=== PATIENT | male | born 1945 | race Caucasian/White ===

== ENCOUNTER 2016-11-28 10:44 | Inpatient (IN) | payer MEDICARE, OTHER ==
[~2016-11-28] VITALS: Ht 172.7 cm; Wt 80.1 kg
[~2016-11-28 10:44] MED LIST: ABIL5TAB6 PO; ACET1CAP18 PO; ASCO500C PO; BUSP15TA PO; CENTTAB PO; DOXA4TAB3 PO; LISI-515 PO; MORP60TA24; NYST15T TOPICAL; OMEP40CA2 PO; PROB1TAB PO; RENACAP2 PO; SERT-129 PO; SEVEL800 PO; SIMV20TA PO; VITA200013 PO; [UNRECOGNIZED DRUG - SUPPLY]
[2016-11-28 11:08] VITALS: BP 116/68; PULSE 82; RESP 14; TEMP 98.3; O2SAT 96
--- NOTE | 2016-11-28 11:09 | PD ---
HPI Chief Complaint: weakness, diarrhea Time Seen by Provider: 11:09 Travel History International Travel<30 days: No Contact w/Intl Traveler<30days: No History of Present Illness HPI 71-year-old male with PMH of HTN, HLD, GERD, CAD, s/p stenting 2, ESRD ( dialysis M, W, F) presents to the ED by EMS for evaluation of approximate one week history of loose stools, weakness, insomnia. Accompanied by intermittent nausea. The patient estimates 3 or 4 episodes of watery stools daily. Denies fever, chills, abdominal pain, anorexia, vomiting, melena, hematochezia, BRBPR. Patient states he has been anuric for "weeks." Denies chest pain, cough, shortness of breath. Endorses chronic shoulder and back pain, no worse today. Denies numbness, tingling, weakness, limitation to range of motion of the extremities. Endorses redness and warmth of the right lower extremity. Right total knee replacement revision x 2, last performed Nov [address] Smith at [facility]. Ortho appt 12/22. PCP Dr.K. Brown. Financial Advocate Dr. Nunn. Snailer Dr. Grover. [facility] Past Medical History Hx Anticoagulant Therapy: No Anemia: Yes Arthritis: Yes Anxiety: Yes Depression: Yes Cardiac Catheterization: Yes Cardiovascular Problems: Yes (CATH W/2 STENTS ) High Cholesterol: Yes Chemotherapy: No Chest Pain: Yes Cerebrovascular Accident: No Coronary Artery Disease: Yes Diabetes: No Dialysis: Yes Diminished Hearing: No Endocrine: No Gastrointestinal Disorders: Yes GERD: Yes Genitourinary: No Headaches: Yes Herniated Disk: Yes Hypertension: Yes Immune Disorder: No Musculoskeletal: Yes Neurologic: Yes Psychiatric: Yes Respiratory: No Pneumonia: Yes Past Surgical History Cardiac Surgery: Yes (STENTS ) Cholecystectomy: Yes Coronary Stent: Yes (X2) Ear Surgery: No Endocrine Surgery: No Genitourinary Surgery: No Hysterectomy: No Joint Replacement: Yes (BILATERAL KNEES) Oral Surgery: No Thoracic Surgery: No Other Surgery: Yes Social History Alcohol Use: No Tobacco Use: No (QUIT AGE 38) Substance Use: No Allergies-Medications (Allergen,Severity, Reaction): Coded Allergies: Citalopram (Verified Allergy, Intermediate, sweating, 11/07/16) Effexor (Verified Allergy, Intermediate, sweating, 11/07/16) Lamisil (Verified Allergy, Intermediate, rash, 11/07/16) Caduet (Verified Allergy, Mild, anxiety, 11/07/16) Clonidine (Verified Allergy, Mild, anxiety, 11/07/16) Cymbalta (Verified Allergy, Mild, sweating, 11/07/16) Oxycontin (Verified Allergy, Mild, anxiety, 11/07/16) Reported Meds & Prescriptions Reported Meds & Active Scripts Active Renal Vitamin (B-Complex W/ C & Folic Acid) 1 Cap 1 Cap PO DAILY If on dialysis, take after treatment. Lisinopril 20 Mg Tab 20 Mg PO BID Doxazosin (Doxazosin Mesylate) 4 Mg Tab 4 Mg PO BID Reported Simvastatin 20 Mg Tab 20 Mg PO HS Aripiprazole 15 Mg Tab 15 Mg PO BID Sertraline (Sertraline HCl) 100 Mg Tab 100 Mg PO DAILY Morphine Sulfate CR (Morphine Sulfate) 60 Mg Tab 120 Mg Q12HR Centrum Silver (Multiple Vitamins W/ Minerals) 1 Tab 1 Tab PO DAILY Tylenol (Acetaminophen) 325 Mg Cap 650 Mg PO Q4HR PRN Renvela (Sevelamer Carbonate) 800 Mg Tab 800 Mg PO TID Probiotic (Probiotic Product) 1 Tab Tab 1 Tab PO DAILY Vitamin D (Cholecalciferol) 2,000 Unit Cap 2,000 Units PO DAILY Vitamin C (Ascorbic Acid) 500 Mg Cap 500 Mg PO Buspirone (Buspirone HCl) 15 Mg Tab 15 Mg PO DAILY Review of Systems Except as stated in HPI: all other systems reviewed are Neg Physical Exam Narrative GENERAL: Well-nourished, well-developed elderly white male in no acute distress. SKIN: Warm and dry. The right leg is tender, erythematous, warm to the touch anterior aspect ankle to mid reaves. HEAD: Normocephalic. EYES: No scleral icterus. No injection or drainage. NECK: Supple, trachea midline. No JVD or lymphadenopathy. CARDIOVASCULAR: Regular rate and rhythm without murmurs, gallops, or rubs. RESPIRATORY: Breath sounds clear and equal bilaterally. No accessory muscle use. GASTROINTESTINAL: Abdomen soft, non-tender, nondistended. Active bowel sounds. MUSCULOSKELETAL: No cyanosis. 2+ pretibial edema to knees bilaterally. Bilateral TKR's with well-healed scars. BACK: Nontender. Kyphotic deformity. No CVA tenderness. Data Data Last Documented VS Vital Signs Date Time Temp Pulse Resp B/P Pulse Ox O2 Delivery O2 Flow Rate FiO2 11/28/16 11:08 98.3 82 14 116/68 96 Orders Complete Blood Count With Diff (11/28/16 11:17) Comprehensive Metabolic Panel (11/28/16 11:17) Lipase (11/28/16 11:17) Lactic Acid (11/28/16 11:17) Prothrombin Time / Inr (Pt) (11/28/16 11:17) Act Partial Throm Time (Ptt) (11/28/16 11:17) Urinalysis - C+S If Indicated (11/28/16 11:17) Iv Access Insert/Monitor (11/28/16 11:17) Ecg Monitoring (11/28/16 11:17) Oximetry (11/28/16 11:17) Sodium Chloride 0.9% Flush (Ns Flush) (11/28/16 11:30) Electrocardiogram (11/28/16 11:17) ^ Straight Catheter (11/28/16 11:17) Westergren Sedimentation Rate (11/28/16 11:44) Mri Joint Knee W/O Contrast (11/28/16 ) C-Reactive Protein (Crp) (11/28/16 11:35) Chest, Single Ap (11/28/16 ) Vancomycin Inj (Vancomycin Inj) (11/28/16 14:00) Consult Nephrology (11/28/16 ) Consult Orthopedic (11/28/16 ) (Hub Use Only)Inp Phy Cons/Ref (11/28/16 ) Admit Order (Ed Use Only) (11/28/16 14:15) (Hub Use Only)Inp Phy Cons/Ref (11/28/16 ) Labs Laboratory Tests Test 11/28/16 11:35 White Blood Count 7.0 TH/MM3 Red Blood Count 3.34 MIL/MM3 Hemoglobin 9.6 GM/DL Hematocrit 30.2 % Mean Corpuscular Volume 90.5 FL Mean Corpuscular Hemoglobin 28.8 PG Mean Corpuscular Hemoglobin 31.8 % Concent Red Cell Distribution Width 16.3 % Platelet Count 263 TH/MM3 Mean Platelet Volume 7.1 FL Neutrophils (%) (Auto) 76.8 % Lymphocytes (%) (Auto) 10.9 % Monocytes (%) (Auto) 10.0 % Eosinophils (%) (Auto) 0.6 % Basophils (%) (Auto) 1.7 % Neutrophils # (Auto) 5.4 TH/MM3 Lymphocytes # (Auto) 0.8 TH/MM3 Monocytes # (Auto) 0.7 TH/MM3 Eosinophils # (Auto) 0.0 TH/MM3 Basophils # (Auto) 0.1 TH/MM3 CBC Comment DIFF FINAL Differential Comment Erythrocyte Sedimentation Rate 69 mm/hr Prothrombin Time 20.7 SEC Prothromb Time International 1.8 RATIO Ratio Activated Partial 40.1 SEC Thromboplast Time Sodium Level 140 MEQ/L Potassium Level 4.4 MEQ/L Chloride Level 109 MEQ/L Carbon Dioxide Level 18.6 MEQ/L Anion Gap 12 MEQ/L Blood Urea Nitrogen 52 MG/DL Creatinine 8.91 MG/DL Estimat Glomerular Filtration 6 ML/MIN Rate Random Glucose 86 MG/DL Lactic Acid Level 0.4 mmol/L Calcium Level 8.0 MG/DL Total Bilirubin 0.4 MG/DL Aspartate Amino Transf 13 U/L (AST/SGOT) Alanine Aminotransferase 14 U/L (ALT/SGPT) Alkaline Phosphatase 150 U/L C-Reactive Protein 12.70 MG/DL Total Protein 6.3 GM/DL Albumin 2.4 GM/DL Lipase 58 U/L MDM Medical Decision Making Medical Screen Exam Complete: Yes Emergency Medical Condition: Yes Interpretation(s) EKG rate 63. WI interval 195 ms, QRS 90 ms, QTC 410 ms. Normal axis. No ischemic changes. Reviewed by Dr. Coulter. Differential Diagnosis Urinary tract infection versus cellulitis versus septic joint versus electrolyte abnormality versus infectious diarrhea versus other Narrative Course 71-year-old male with PMH of HTN, HLD, GERD, CAD, s/p stenting 2, ESRD ( dialysis M, W, F) presents to the ED for evaluation of approximate one week history of loose stools, weakness, insomnia. Accompanied by intermittent nausea. Estimates 3-4 episodes of watery stools daily. Denies fever, chills, abdominal pain, anorexia, vomiting, melena, hematochezia, BRBPR, chest pain, cough, shortness of breath. Endorses chronic shoulder and back pain, no worse today. Endorses redness and warmth of the right lower extremity. Total knee revision performed one year ago at [facility]. Vital signs reviewed. Physical exam reveals a nontoxic-appearing white male in no acute distress. Abdomen soft, nontender. Active bowel sounds. The right lower extremity is edematous, erythematous, warm, tender on the anterior aspect from ankle to mid reaves. Well-healed surgical scars. IV was established. Patient was placed on continuous monitoring. PCP Dr. Burrell Financial Advocate Dr. Nunn Snailer Dr. Grover CBC: WBC 7.0. Hemoglobin 9.6. CMP: BUN 52. Creatinine 8.91. Calcium 8.0 INR: 1.8 Lactic: 0.4. Lipase: 58 ESR 69 CRP 12.7 EKG: As above CXR: pending MRI of the knee: pending Suspect cellulitis, possible septic join of RLE. I spoke with the patient and his family regarding admission to the hospital for IV antibiotics and further evaluation. They are amenable to this plan of care. 1 g vancomycin ordered. Spoke with Dr. Payton who agrees to accept this patient to the medicine team. Nephrology consulted. Call placed to Dr. Ac, orthopedic surgeon, who will consult on the patient. Please see medicine, orthopedic, nephrology notes for disposition. Diagnosis Primary Impression: Cellulitis of right lower leg Kristina Schroeder Nov 28, 2016 11:09
[2016-11-28] MEDS ORDERED: SODIUM CHLORIDE 0.9% FLUSH 5 ML FLUSH IVF PRN ×2 (11:30→16:15)
[2016-11-28 11:52] LABS: AUTOMATED NEUTROPHIL # 5.4 TH/MM3 (1.8-7.7); BASOPHIL # 0.1 TH/MM3 (0-0.2); BASOPHIL % 1.7 % (0.0-2.0); EOSINOPHIL % 0.6 % (0.0-4.0); HEMATOCRIT 30.2 % (39.0-51.0); HEMO FLAGS DIFF FINAL; LYMPH % 10.9 % (9.0-44.0); LYMPHOCYTE # 0.8 TH/MM3 (1.0-4.8); MEAN CELL VOLUME 90.5 FL (80.0-100.0); MEAN CORPUSCULAR HEMOGLOBIN 28.8 PG (27.0-34.0); MEAN CORPUSCULAR HGB CONC 31.8 % (32.0-36.0); NEUT % 76.8 % (16.0-70.0); PLATELET COUNT 263 TH/MM3 (150-450); RED BLOOD COUNT 3.34 MIL/MM3 (4.50-5.90); RED CELL DISTRIBUTION WIDTH 16.3 % (11.6-17.2)
[2016-11-28 12:00] VITALS: BP 118/56; PULSE 62; RESP 20; O2SAT 97
[2016-11-28 12:11] LABS: ALT (GPT) 14 U/L (12-78); ANION GAP 12 MEQ/L (5-15); AST (GOT) 13 U/L (15-37); BICARBONATE 18.6 MEQ/L (21.0-32.0); BLOOD UREA NITROGEN 52 MG/DL (7-18); CHLORIDE 109 MEQ/L (98-107); GLOMERULAR FILTRATION RATE 6 ML/MIN (>89); POTASSIUM 4.4 MEQ/L (3.5-5.1); SODIUM (NA) 140 MEQ/L (136-145)
[2016-11-28 12:12] LABS: APTT (PATIENT) 40.1 SEC (24.3-30.1); INTERNATIONAL NORMALIZED RATIO 1.8 RATIO; PROTHROMBIN TIME - PATIENT 20.7 SEC (9.8-11.6)
[2016-11-28] MEDS ORDERED: SIMV20TA PO (12:19)
[2016-11-28] MEDS ORDERED: ARIP1TAB13 PO (12:19)
[2016-11-28 12:21] LABS: ALKALINE PHOSPHATASE 150 U/L (45-117); TOTAL BILIRUBIN ADULT 0.4 MG/DL (0.2-1.0)
[2016-11-28 13:00] VITALS: BP 112/57; PULSE 63; RESP 20; O2SAT 97
[2016-11-28] MEDS ORDERED: VANCOMYCIN INJ 1,000 MG in SODIUM CHLOR 0.9% 250 ML INJ 250 ML IV ONE ×2 (14:00→18:15)
--- NOTE | 2016-11-28 14:35 | RADRPT ---
EXAM DATE/TIME: 11/28/2016 13:39 [facility] COMPARISON: CHEST SINGLE AP, March 02, 2016, 11:02. INDICATIONS : Short of breath for 2 days MEDICAL HISTORY : Hypertension. Cardiovascular disease. SURGICAL HISTORY : Coronary artery stent. ENCOUNTER: Initial ACUITY: 2 days PAIN SCORE: 0/10 LOCATION: Bilateral chest FINDINGS: The heart is enlarged. Minimal parenchymal changes are present in the right base. The left lung is clear. There is no pneumothorax. CONCLUSION: Cardiomegaly with minimal parenchymal changes right base. Higinio Suero MD FACR on November 28, 2016 at 14:16 Board Certified Radiologist. This report was verified electronically.
[2016-11-28] MEDS ORDERED: ONDANSETRON HCL 4 MG/2 ML VIAL IVP PRN (16:00)
[2016-11-28] MEDS ORDERED: Vancomycin Consult Pharmacy 1 EA OTHER SCH (16:00)
[2016-11-28] MEDS ORDERED: MAGNESIUM HYDROXIDE SUSP 30 ML CUP PO PRN (16:00)
[2016-11-28] MEDS ORDERED: NALOXONE HCL 0.4 MG/ML AMP IV PRN (16:00)
[2016-11-28] MEDS ORDERED: SODIUM CHLOR 0.9% 1000 ML INJ 1,000 ML IV PRN ×3 (16:03)
[2016-11-28] MEDS ORDERED: NITROGLYCERIN 0.4 MG SL 25 TABS/BTL SL PRN (16:15)
[2016-11-28] MEDS ORDERED: HEPARIN SODIUM - IV 10,000 UNITS/10 ML VIAL PRN (16:15)
[2016-11-28] MEDS ORDERED: HEPARIN SODIUM - IV 10,000 UNITS/10 ML VIAL IVF PRN (16:15)
[2016-11-28] MEDS ORDERED: GELATIN 12 MM/7 MM FOAM TOP PRN (16:15)
[2016-11-28] MEDS ORDERED: GENTAMICIN SULFATE (DIALYSIS USE ONLY) 20 MG/2 ML VIAL IV PRN (16:15)
[2016-11-28] MEDS ORDERED: MANNITOL 12.5 GM/50 ML VIAL IV PRN (16:15)
[2016-11-28] MEDS ORDERED: ACETAMINOPHEN 325 MG TAB PO PRN ×2 (16:15→18:00)
[2016-11-28] MEDS ORDERED: ALBUMIN HUMAN 25% 25 GM/100 ML BAGP IV PRN (16:15)
[2016-11-28] MEDS ORDERED: ONDANSETRON HCL 4 MG/2 ML VIAL IV PRN (16:15)
[2016-11-28] MEDS ORDERED: diphenhydrAMINE HCL 25 MG CAP PO PRN (16:15)
[2016-11-28] MEDS ORDERED: cloNIDine HCL 0.1 MG TAB PO PRN (16:15)
--- NOTE | 2016-11-28 16:18 | RADRPT ---
EXAM DATE/TIME: 11/28/2016 14:07 [facility] COMPARISON: No previous studies available for comparison. INDICATIONS: Abscess. Red and swollen times 1 year. MEDICAL HISTORY: Hypertension. Renal failure, chronic. SURGICAL HISTORY: Total knee replacement, right. Discectomy, lumbar. Cholecystectomy. ENCOUNTER: Initial ACUITY: 1 year PAIN SCORE: 3/10 LOCATION: Right knee TECHNIQUE: Multiplanar, multisequence MRI examination was performed without contrast. FINDINGS: MRI of the knee was performed on this patient with total knee arthroplasty in place. Extensive metal susceptibility artifact is present. I cannot exclude a joint effusion. I do not see evidence for an abscess above or below the prosthesis. CONCLUSION: Severely limited exam because of susceptibility artifact from the metal prosthesis. I do not see an abscess above or below the prosthesis. Joint is not evaluated. Higinio Suero MD FACR on November 28, 2016 at 15:59 Board Certified Radiologist. This report was verified electronically.
[2016-11-28] MEDS: SODIUM CHLOR 0.9% 1000 ML INJ 1,000 ML IV SCH (17:00)
--- NOTE | 2016-11-28 17:46 | HHI.HP ---
[facility] Unknown Admission Diagnosis cellulitis R/O septic joint RLE Diagnoses: (1) Generalized weakness Diagnosis: Principal (2) Cellulitis of right lower leg (3) Chronic pain (4) Hypertension (5) GERD (gastroesophageal reflux disease) (6) Depression (7) ESRD (end stage renal disease) on dialysis Chief Complaint: Weakness Travel History International Travel<30 Days: No Contact w/Intl Traveler <30 Da: No Traveled to Known Affected Are: No History of Present Illness The patient is a 71-year-old male who states that for the last month he has had loose stools. He states that over the past 2-3 days he started feeling weak in his legs. He states that today his legs just couldn't hold him up anymore. He denies falling. Denies lightheadedness, dizziness, loss of consciousness. Denies chest pain or dyspnea. Has had night sweats "for months". Denies fever or chills. States that his right lower leg has been red for quite some time, but has become more red in the last few days. He has some pain with flexion and extension of the right knee. Review of Systems Constitutional: COMPLAINS OF: Night Sweats, DENIES: Fever, Chills Eyes: DENIES: Blurred vision, Vision loss Ears, nose, mouth, throat: DENIES: Hearing loss Respiratory: DENIES: Cough, Wheezing, Sputum production, Shortness of breath Cardiovascular: DENIES: Chest pain, Palpitations, Dyspnea on Exertion, Lower Extremity Edema Gastrointestinal: COMPLAINS OF: Diarrhea, DENIES: Abdominal pain, Constipation , Nausea, Vomiting Genitourinary: DENIES: Urinary frequency, Urinary incontinence, Urgency, Hematuria, Dysuria, Nocturia Musculoskeletal: DENIES: Joint pain, Muscle aches Integumentary: DENIES: Pruritus, Rash Hematologic/lymphatic: DENIES: Bruising Neurologic: DENIES: Headache Past Family Social History Past Medical History Hypertension Hyperlipidemia GERD Chronic back pain End-stage renal disease on hemodialysis Monday/Monday/Monday Anxiety/depression Coronary artery disease Osteoarthritis Past Surgical History Coronary artery stent 2 Cholecystectomy Bilateral knee replacement 2 Reported Medications Renal Vitamin (B-Complex W/ C & Folic Acid) 1 Cap 1 Cap PO DAILY If on dialysis, take after treatment. Lisinopril 20 Mg Tab 20 Mg PO BID Doxazosin (Doxazosin Mesylate) 4 Mg Tab 4 Mg PO BID Simvastatin 20 Mg Tab 20 Mg PO HS Aripiprazole 15 Mg Tab 15 Mg PO BID Sertraline (Sertraline HCl) 100 Mg Tab 100 Mg PO DAILY Morphine Sulfate CR (Morphine Sulfate) 60 Mg Tab 120 Mg Q12HR Centrum Silver (Multiple Vitamins W/ Minerals) 1 Tab 1 Tab PO DAILY Tylenol (Acetaminophen) 325 Mg Cap 650 Mg PO Q4HR PRN Renvela (Sevelamer Carbonate) 800 Mg Tab 800 Mg PO TID Probiotic (Probiotic Product) 1 Tab Tab 1 Tab PO DAILY Vitamin D (Cholecalciferol) 2,000 Unit Cap 2,000 Units PO DAILY Vitamin C (Ascorbic Acid) 500 Mg Cap 500 Mg PO Buspirone (Buspirone HCl) 15 Mg Tab 15 Mg PO DAILY Allergies: Coded Allergies: Citalopram (Verified Allergy, Intermediate, sweating, 11/07/16) Effexor (Verified Allergy, Intermediate, sweating, 11/07/16) Lamisil (Verified Allergy, Intermediate, rash, 11/07/16) Caduet (Verified Allergy, Mild, anxiety, 11/07/16) Clonidine (Verified Allergy, Mild, anxiety, 11/07/16) Cymbalta (Verified Allergy, Mild, sweating, 11/07/16) Oxycontin (Verified Allergy, Mild, anxiety, 11/07/16) Family History Sister had Crohn's disease. Social History Quit smoking 30+ years ago. Denies alcohol or illicit drug use. Physical Exam Vital Signs Vital Signs Date Time Temp Pulse Resp B/P Pulse Ox O2 Delivery O2 Flow Rate FiO2 11/28/16 13:00 63 20 112/57 97 Room Air 11/28/16 12:00 62 20 118/56 97 Room Air 11/28/16 11:08 98.3 82 14 116/68 96 Physical Exam Patient seen during dialysis. GENERAL: Elderly male in no acute distress. HEENT: Normocephalic, atraumatic. Pupils equal, round and reactive. Extraocular movements intact. No scleral icterus. No injection or drainage. Oropharynx is clear. Mucous membranes are moist. CARDIOVASCULAR: Regular rate and rhythm without murmurs, gallops, or rubs. RESPIRATORY: Clear to auscultation. No wheezes, rales, or rhonchi. Breathing is non-labored. GASTROINTESTINAL: Abdomen soft, non-tender, nondistended. EXTREMITIES: Trace bilateral lower extremity edema. There is erythema of the right lower leg. Multiple surgical scars overlying both knees. PSYCH: Alert and oriented x 3. Laboratory Laboratory Tests Test 11/28/16 11:35 White Blood Count 7.0 Red Blood Count 3.34 Hemoglobin 9.6 Hematocrit 30.2 Mean Corpuscular Volume 90.5 Mean Corpuscular Hemoglobin 28.8 Mean Corpuscular Hemoglobin 31.8 Concent Red Cell Distribution Width 16.3 Platelet Count 263 Mean Platelet Volume 7.1 Neutrophils (%) (Auto) 76.8 Lymphocytes (%) (Auto) 10.9 Monocytes (%) (Auto) 10.0 Eosinophils (%) (Auto) 0.6 Basophils (%) (Auto) 1.7 Neutrophils # (Auto) 5.4 Lymphocytes # (Auto) 0.8 Monocytes # (Auto) 0.7 Eosinophils # (Auto) 0.0 Basophils # (Auto) 0.1 CBC Comment DIFF FINAL Differential Comment Erythrocyte Sedimentation Rate 69 Prothrombin Time 20.7 Prothromb Time International 1.8 Ratio Activated Partial 40.1 Thromboplast Time Sodium Level 140 Potassium Level 4.4 Chloride Level 109 Carbon Dioxide Level 18.6 Anion Gap 12 Blood Urea Nitrogen 52 Creatinine 8.91 Estimat Glomerular Filtration 6 Rate Random Glucose 86 Lactic Acid Level 0.4 Calcium Level 8.0 Total Bilirubin 0.4 Aspartate Amino Transf 13 (AST/SGOT) Alanine Aminotransferase 14 (ALT/SGPT) Alkaline Phosphatase 150 C-Reactive Protein 12.70 Total Protein 6.3 Albumin 2.4 Lipase 58 Result Diagram: 11/28/16 1135 11/28/16 1135 Imaging Last Impressions Chest X-Ray 11/28/16 0000 Signed Impressions: Service Date/Time: Monday, November 28, 2016 13:39 - CONCLUSION: Cardiomegaly with minimal parenchymal changes right base. Higinio Suero MD FACR Assessment and Plan Assessment and Plan 1. Generalized weakness: Likely multifactorial. Consult PT. Monitor labs. 2. Right lower extremity cellulitis: Orthopedic surgery consultation requested as patient has had joint replacement and prior infection of the joint. He does have good range of motion with only mild pain at this time. 3. Coronary artery disease: Currently asymptomatic. Continue statin, MARIBETH inhibitor. 4. Chronic back pain: Continue pain control with morphine. 5. Anxiety/depression: Continue home medications. 6. End-stage renal disease: Hemodialysis per nephrology. Patient on Monday/ Monday/Monday schedule. 7. DVT prophylaxis: Heparin. Roosevelt Payton MD Nov 28, 2016 17:46
[2016-11-28] MEDS ORDERED: VANCOMYCIN INJ 1,000 MG in SODIUM CHLOR 0.9% 250 ML INJ 250 ML IV SCH (18:15)
[2016-11-28] MEDS: EPOETIN ALFA 10,000 UNITS/ML VIAL IV PRN (18:25)
--- NOTE | 2016-11-28 19:34 | MB ---
cc: EMANUEL DURAN MD DATE OF CONSULTATION 11/28/2016 REASON FOR CONSULTATION End-stage renal disease on hemodialysis for management. HISTORY OF PRESENT ILLNESS This is a 71-year-old male with past medical history of hypertension, ischemic heart disease post stenting, history of gastroesophageal reflux disease, severe osteoarthritis, came to the hospital with complaint of weakness and loose bowel motion. I was called to see the patient for management of dialysis. The patient has been following with Dr. Nunn and has been on hemodialysis Monday, Monday and Monday at [facility] in [facility]. The patient has loose bowel motion that started early in the morning and he came to the hospital. He was feeling weak and tired. He lives at home with his and he has pain and weakness in his legs because of bilateral knee replacement and only to ambulate to some extent but noticed some more swelling and pain in the right knee. He denies any history of fever. He has loose bowel motions started early in the morning. There is no history of vomiting. Denies any specific abdominal pain. There is no chest pain. No shortness of breath. PAST MEDICAL HISTORY 1. Hypertension. 2. Ischemic heart disease. 3. Gastroesophageal reflux disease. 4. End-stage renal disease on hemodialysis. 5. History of chronic anemia. PAST SURGICAL HISTORY 1. History of cardiac catheterization. 2. Left arm AV fistula. 3. Bilateral knee replacement. 4. Cholecystectomy. 5. Cardiac catheterization with stent placement. REVIEW OF SYSTEMS There is no history of fever. No sore throat. No headache, dizziness or blurring of vision. The patient has this loose bowel motion that started early in the morning mainly watery to soft and there is no blood in the stool. Has occasional abdominal cramp but there is no pain and no vomiting. No history of fever. Has some weakness in the leg and has more swelling in the right leg and right knee area. Denies any recent history of trauma. SOCIAL HISTORY Patient is and lives with his . He stopped smoking at age of 38. There is no history of heavy alcoholism. FAMILY HISTORY Noncontributory. ALLERGIES ALLERGIC TO CITALOPRAM, EFFEXOR, LAMISIL, OXYCOTIN, CADUET, CLONIDINE, CYMBALTA, OXYCONTIN. MEDICATIONS Currently he is just got one dose of vancomycin. PHYSICAL EXAMINATION GENERAL: The patient is awake and alert. He is currently on hemodialysis. VITAL SIGNS: Last blood pressure was 112/57. Temperature is 98.3. Oxygen saturation on room air is 97%. HEENT: Pupils equally reactive to light. Nonicteric sclerae. Conjunctivae pale. NECK: Supple. JVD is not elevated. LUNGS: The patient has bilateral good air entry with occasional wheezing. HEART: S1-S2. Regular rhythm. ABDOMEN: Distended. Soft. Lax. There is no tenderness. Bowel sounds positive. EXTREMITIES: He has bilateral 1+ edema more in the right leg. The right knee is a little bit more swollen. There is no redness or increased temperature. LABORATORY DATA Investigations, white blood cell count is 7.0, hemoglobin 9.6, platelet count of 263, neutrophils 76.8%. Sodium 140, potassium 4.4, chloride 109, bicarb 18.6, BUN 52, creatinine 8.9, calcium 8.0, alkaline phosphatase 150. AST is 13, ALT is 14, albumin is 2.4, total protein 6.3 and lipase 58. CRP is 12.7. Urinalysis not done. INR is 1.8. IMAGING STUDIES The patient has chest x-ray done and it shows cardiomegaly with some parenchymal changes. MRI of the knee done. Result is not available yet. ASSESSMENT/PLAN 1. Loose bowel motions possible colitis. 2. Rule out right knee septic arthritis. 3. End-stage renal disease on hemodialysis. 4. History of hypertension. 5. Anemia. The patient has been afebrile but has increase in the neutrophils, need to rule out septic arthritis. MRI was done and orthopedics has been consulted. Hemodynamically he is stable. Currently he is on dialysis, trying to remove 2 liters. He is tolerating it well. The patient had hemoglobin of 9.6. We will put him on his regular dose of Epogen and continue the dialysis Monday, Monday and Monday and as needed. I will follow the patient while he is in the hospital. Thank you for the consultation. MD MARTINEZ Almeida/STEFANIA /4:01 PM /7:17 PM
[2016-11-28 20:30] VITALS: BP 146/65; PULSE 68; RESP 19; TEMP 99; O2SAT 95
[2016-11-28 20:52] VITALS: PULSE 72
[2016-11-28] MEDS ORDERED: MORPHINE SULFATE 60 MG CONTROLLED RELEASE TAB PO SCH (21:00)
[2016-11-28] MEDS: PRAVASTATIN SOD 40 MG TAB PO SCH (21:03)
[2016-11-28] MEDS: LISINOPRIL 20 MG TAB PO SCH (21:03)
[2016-11-28] MEDS: ARIPiprazole 15 MG TAB PO SCH (22:10)
[2016-11-28] MEDS: MORPHINE SULFATE 60 MG CONTROLLED RELEASE TAB PO SCH (22:10)
[2016-11-28 23:40] VITALS: BP 146/65; PULSE 75; RESP 19; TEMP 99.9; O2SAT 87
[2016-11-29 04:54] LABS: AUTOMATED NEUTROPHIL # 3.3 TH/MM3 (1.8-7.7); BASOPHIL # 0.1 TH/MM3 (0-0.2); BASOPHIL % 1.9 % (0.0-2.0); EOSINOPHIL # 0.1 TH/MM3 (0-0.4); EOSINOPHIL % 1.3 % (0.0-4.0); HEMATOCRIT 27.4 % (39.0-51.0); HEMO FLAGS DIFF FINAL; LYMPH % 16.4 % (9.0-44.0); LYMPHOCYTE # 0.8 TH/MM3 (1.0-4.8); MEAN CELL VOLUME 88.6 FL (80.0-100.0); MEAN CORPUSCULAR HEMOGLOBIN 29.3 PG (27.0-34.0); MEAN CORPUSCULAR HGB CONC 33.1 % (32.0-36.0); MONO % 16.3 % (0.0-8.0); NEUT % 64.1 % (16.0-70.0); PLATELET COUNT 222 TH/MM3 (150-450); RED BLOOD COUNT 3.09 MIL/MM3 (4.50-5.90); RED CELL DISTRIBUTION WIDTH 16.3 % (11.6-17.2); WHITE BLOOD COUNT 5.1 TH/MM3 (4.0-11.0)
[2016-11-29] MEDS: HEPARIN SODIUM - SQ 10,000 UNITS/ML VIAL SQ SCH ×2 (05:02→17:03)
[2016-11-29 05:13] LABS: ALKALINE PHOSPHATASE 154 U/L (45-117); ALT (GPT) 13 U/L (12-78); ANION GAP 10 MEQ/L (5-15); AST (GOT) 14 U/L (15-37); BLOOD UREA NITROGEN 23 MG/DL (7-18); CHLORIDE 104 MEQ/L (98-107); GLOMERULAR FILTRATION RATE 11 ML/MIN (>89); POTASSIUM 3.5 MEQ/L (3.5-5.1); SODIUM (NA) 143 MEQ/L (136-145); TOTAL BILIRUBIN ADULT 0.4 MG/DL (0.2-1.0)
--- NOTE | 2016-11-29 07:10 | PD.CONS ---
cc: Nuno Ac MD HPI Service Orthopedic Surgeons Consult Requested By ED staff Reason for Consult Cellulitis, possible septic right total knee arthroplasty Primary Care Physician Unknown Admission Diagnosis cellulitis R/O septic joint RLE Diagnoses: (1) Generalized weakness Diagnosis: Principal (2) Cellulitis of right lower leg (3) Chronic pain (4) Hypertension (5) GERD (gastroesophageal reflux disease) (6) Depression (7) ESRD (end stage renal disease) on dialysis (8) Infection of total right knee replacement Chief Complaint: Generalized weakness, leg pain History of Present Illness This 71-year-old male with multiple medical problems has undergone previous bilateral knee surgery. The patient had a right total knee arthroplasty in [place]. This was apparently complicated by infection. He has had 2 subsequent procedures for same. The last was in May. The patient has had loose stools and generalized weakness over the last several weeks. He is having progressive difficulty ambulating. He presented to [facility]. He was admitted to the medical service with diagnosis of cellulitis and possible septic total knee. Orthopedic consultation was requested. Review of Systems Reviewed and well outlined in the chart Past Family Social History Past Medical History Hypertension Hyperlipidemia GERD Chronic back pain End-stage renal disease on hemodialysis Monday/Monday/Monday Anxiety/depression Coronary artery disease Osteoarthritis Past Surgical History Coronary artery stent 2 Cholecystectomy Bilateral knee replacement 2 Allergies: Coded Allergies: Citalopram (Verified Allergy, Intermediate, sweating, 11/07/16) Effexor (Verified Allergy, Intermediate, sweating, 11/07/16) Lamisil (Verified Allergy, Intermediate, rash, 11/07/16) Caduet (Verified Allergy, Mild, anxiety, 11/07/16) Clonidine (Verified Allergy, Mild, anxiety, 11/07/16) Cymbalta (Verified Allergy, Mild, sweating, 11/07/16) Oxycontin (Verified Allergy, Mild, anxiety, 11/07/16) Active Ordered Medications Current Medications Medications (Trade) Dose Ordered Sig/Pb Route Start Time Stop Time Status Last Admin IV Flush 2 ml 2 ml UNSCH PRN IVF 11/28/16 11:30 (NS 1000 ml Inj) 1,000 ml @ 50 mls/hr Q20H IV 11/28/16 17:00 11/28/16 17:00 (Tylenol) 650 mg Q4H PRN PO 11/28/16 16:00 (Zofran Inj) 4 mg Q6H PRN IVP 11/28/16 16:00 (Milk Of Magnesia Liq) 30 ml Q12H PRN PO 11/28/16 16:00 (Heparin Inj) 5,000 units Q12H SQ 11/28/16 17:00 11/29/16 05:02 Naloxone HCl 0.4 mg 0.4 mg UNSCH PRN IV 11/28/16 16:00 (NS 1000 ml Inj) 1,000 ml @ 0 mls/hr Q0M PRN IV 11/28/16 16:03 Heparin Sodium (Porcine) 8000 units 8,000 units UNSCH PRN IVF 11/28/16 16:15 Sodium Chloride 1,000 ml @ 200 mls/hr Q5H PRN IV 11/28/16 16:03 (NS 1000 ml Inj) 1,000 ml @ 0 mls/hr Q0M PRN IV 11/28/16 16:03 (Mannitol Inj) 12.5 gm UNSCH PRN IV 11/28/16 16:15 (Albumin 25% Inj) 25 gm UNSCH PRN IV 11/28/16 16:15 (NS Flush) 5 ml UNSCH PRN IVF 11/28/16 16:15 (Heparin Inj) UNSCH PRN .XX 11/28/16 16:15 (Gentamicin (Dialysis) Inj) 20 mg UNSCH PRN IV 11/28/16 16:15 (Zofran Inj) 4 mg UNSCH PRN IV 11/28/16 16:15 (Tylenol) 650 mg UNSCH PRN PO 11/28/16 16:15 (Benadryl) 25 mg UNSCH PRN PO 11/28/16 16:15 (Nitrostat Sl) 0.4 mg UNSCH PRN SL 11/28/16 16:15 (Epogen Inj) 10,000 units UNSCH PRN IV 11/28/16 16:15 11/28/16 18:25 (Gelfoam 12 Mm/7 Mm Top) 1 foam UNSCH PRN TOP 11/28/16 16:15 2/6/17 18:26 (Tylenol) 650 mg Q4HR PRN PO 11/28/16 18:00 (Abilify) 15 mg BID PO 11/28/16 21:00 11/28/16 22:10 (Nephrocaps) 1 cap DAILY PO 11/29/16 09:00 (Buspar) 15 mg DAILY PO 11/29/16 09:00 (Prinivil) 20 mg BID PO 11/28/16 21:00 11/28/16 21:03 (Zoloft) 100 mg DAILY PO 11/29/16 09:00 (Renvela) 800 mg TID PO 11/28/16 18:00 (Lactinex) 1 tab DAILY PO 11/29/16 09:00 (Pravachol) 40 mg HS PO 11/28/16 21:00 11/28/16 21:03 (Oramorph Sr) 60 mg Q12HR PO 11/28/16 21:00 11/28/16 22:10 Reported Meds & Active Scripts Active Renal Vitamin (B-Complex W/ C & Folic Acid) 1 Cap 1 Cap PO DAILY If on dialysis, take after treatment. Lisinopril 20 Mg Tab 20 Mg PO BID Doxazosin (Doxazosin Mesylate) 4 Mg Tab 4 Mg PO BID Reported Simvastatin 20 Mg Tab 20 Mg PO HS Aripiprazole 15 Mg Tab 15 Mg PO BID Sertraline (Sertraline HCl) 100 Mg Tab 100 Mg PO DAILY Morphine Sulfate CR (Morphine Sulfate) 60 Mg Tab 120 Mg Q12HR Centrum Silver (Multiple Vitamins W/ Minerals) 1 Tab 1 Tab PO DAILY Tylenol (Acetaminophen) 325 Mg Cap 650 Mg PO Q4HR PRN Renvela (Sevelamer Carbonate) 800 Mg Tab 800 Mg PO TID Probiotic (Probiotic Product) 1 Tab Tab 1 Tab PO DAILY Vitamin D (Cholecalciferol) 2,000 Unit Cap 2,000 Units PO DAILY Vitamin C (Ascorbic Acid) 500 Mg Cap 500 Mg PO Buspirone (Buspirone HCl) 15 Mg Tab 15 Mg PO DAILY Family History Sister had Crohn's disease. Social History Quit smoking 30+ years ago. Denies alcohol or illicit drug use. Physical Exam Vital Signs Vital Signs Date Time Temp Pulse Resp B/P Pulse Ox O2 Delivery O2 Flow Rate FiO2 11/28/16 23:40 99.9 75 19 146/65 87 11/28/16 20:52 72 11/28/16 20:30 99.0 68 19 146/65 95 11/28/16 13:00 63 20 112/57 97 Room Air 11/28/16 12:00 62 20 118/56 97 Room Air 11/28/16 11:08 98.3 82 14 116/68 96 Physical Exam He has bilateral anterior knee incisions. There is scarring in the suprapatellar region on the left. The left knee has no soft tissue swelling or effusion. His range of motion is from 5-120 of flexion. There is no palpable tenderness. The right knee has mild soft tissue swelling. There is no significant effusion. There is no increased warmth or erythema. He has a restricted active range of motion from approximately 10-110 of flexion. There is no specific palpable tenderness. There is no obvious instability. He has no distal lower extremity swelling. He has no palpable tenderness in the calf. He has a negative Homans sign. Neurologically no focal deficit. Laboratory Laboratory Tests Test 11/28/16 11/29/16 11:35 04:03 White Blood Count 7.0 5.1 Red Blood Count 3.34 3.09 Hemoglobin 9.6 9.1 Hematocrit 30.2 27.4 Mean Corpuscular Volume 90.5 88.6 Mean Corpuscular Hemoglobin 28.8 29.3 Mean Corpuscular Hemoglobin 31.8 33.1 Concent Red Cell Distribution Width 16.3 16.3 Platelet Count 263 222 Mean Platelet Volume 7.1 7.1 Neutrophils (%) (Auto) 76.8 64.1 Lymphocytes (%) (Auto) 10.9 16.4 Monocytes (%) (Auto) 10.0 16.3 Eosinophils (%) (Auto) 0.6 1.3 Basophils (%) (Auto) 1.7 1.9 Neutrophils # (Auto) 5.4 3.3 Lymphocytes # (Auto) 0.8 0.8 Monocytes # (Auto) 0.7 0.8 Eosinophils # (Auto) 0.0 0.1 Basophils # (Auto) 0.1 0.1 CBC Comment DIFF FINAL DIFF FINAL Differential Comment Erythrocyte Sedimentation Rate 69 Prothrombin Time 20.7 Prothromb Time International 1.8 Ratio Activated Partial 40.1 Thromboplast Time Sodium Level 140 143 Potassium Level 4.4 3.5 Chloride Level 109 104 Carbon Dioxide Level 18.6 29.0 Anion Gap 12 10 Blood Urea Nitrogen 52 23 Creatinine 8.91 5.17 Estimat Glomerular Filtration 6 11 Rate Random Glucose 86 68 Lactic Acid Level 0.4 Calcium Level 8.0 7.6 Total Bilirubin 0.4 0.4 Aspartate Amino Transf 13 14 (AST/SGOT) Alanine Aminotransferase 14 13 (ALT/SGPT) Alkaline Phosphatase 150 154 C-Reactive Protein 12.70 Total Protein 6.3 5.5 Albumin 2.4 2.0 Lipase 58 Result Diagram: 11/29/16 0403 11/29/163 Imaging Last 48 hours Impressions Knee MRI 11/28/16 0000 Signed Impressions: Service Date/Time: Monday, November 28, 2016 14:07 - CONCLUSION: Severely limited exam because of susceptibility artifact from the metal prosthesis. I do not see an abscess above or below the prosthesis. Joint is not evaluated. Higinio Suero MD FACR Chest X-Ray 11/28/16 0000 Signed Impressions: Service Date/Time: Monday, November 28, 2016 13:39 - CONCLUSION: Cardiomegaly with minimal parenchymal changes right base. Higinio Suero MD FACR Assessment & Plan Problem List: (1) Encephalopathy (2) UTI (urinary tract infection) (3) Physical deconditioning (4) Peripheral autonomic neuropathy due to underlying disease (5) Generalized weakness (6) Depression (7) GERD (gastroesophageal reflux disease) (8) Hypertension (9) Chronic pain (10) Cellulitis of right lower leg (11) Infection of total right knee replacement Assessment and Plan The findings were discussed. Clinically the patient does not appear septic nor does the joint appeared to be acutely infected. The possibility however exists based on his previous history. The patient states he is willing and agreeable to return to his treating orthopedist for further workup and management. Once he is medically stabilized he can be discharged from an orthopedic standpoint. Will have case management assist with arranging follow-up care. Reconsult as needed. Nuno cA MD Nov 29, 2016 07:10
[2016-11-29 07:36] VITALS: O2SAT 94
[2016-11-29 08:00] VITALS: BP 136/63; PULSE 80; RESP 19; TEMP 98.2; O2SAT 95
[2016-11-29] MEDS: LACTOBACILLUS ACIDOPHILUS TAB PO SCH (09:14)
[2016-11-29] MEDS: VITAMIN B CMPLX/VITC/FOLIC AC CAP PO SCH (09:14)
[2016-11-29] MEDS: busPIRone HCL 5 MG TAB PO SCH (09:15)
[2016-11-29] MEDS: SERTRALINE HCL 100 MG TAB PO SCH (09:15)
[2016-11-29] MEDS: LISINOPRIL 20 MG TAB PO SCH ×2 (09:15→21:39)
[2016-11-29] MEDS: ARIPiprazole 15 MG TAB PO SCH ×2 (09:16→21:39)
[2016-11-29] MEDS: MORPHINE SULFATE 60 MG CONTROLLED RELEASE TAB PO SCH ×2 (09:16→21:40)
[2016-11-29] MEDS: SEVELAMER CARBONATE 800 MG TAB PO SCH ×3 (09:17→17:06)
--- NOTE | 2016-11-29 11:47 | HHI.PR ---
Subjective Remarks Follow up leg infection, generalized weakness. The patient states that he is feeling better today. Right leg is less painful. There is less erythema of the right lower leg. Denies chest pain, dyspnea, nausea, vomiting. No diarrhea or constipation. Objective Vitals Vital Signs Date Time Temp Pulse Resp B/P Pulse Ox O2 Delivery O2 Flow Rate FiO2 11/29/16 10:16 17 11/29/16 08:00 98.2 80 19 136/63 95 11/29/16 07:36 94 21 11/28/16 23:40 99.9 75 19 146/65 87 11/28/16 20:52 72 11/28/16 20:30 99.0 68 19 146/65 95 11/28/16 13:00 63 20 112/57 97 Room Air 11/28/16 12:00 62 20 118/56 97 Room Air I/O 11/28/16 11/28/16 11/28/16 11/29/16 11/29/16 11/29/16 07:00 15:00 23:00 07:00 15:00 23:00 Intake Total 50 ml 385 ml 120 ml Output Total 3000 ml Balance -2950 ml 385 ml 120 ml Intake Oral 0 ml 0 ml 120 ml IV Total 50 ml 385 ml Output Urine Total 0 ml Hemodialysis 3000 ml # Voids 0 # Bowel Movements 0 0 Result Diagram: 11/29/16 0403 11/29/16 0403 Imaging Last Impressions Knee MRI 11/28/16 0000 Signed Impressions: Service Date/Time: Monday, November 28, 2016 14:07 - CONCLUSION: Severely limited exam because of susceptibility artifact from the metal prosthesis. I do not see an abscess above or below the prosthesis. Joint is not evaluated. Higinio Suero MD FACR Chest X-Ray 11/28/16 0000 Signed Impressions: Service Date/Time: Monday, November 28, 2016 13:39 - CONCLUSION: Cardiomegaly with minimal parenchymal changes right base. Higinio Suero MD FACR Objective Remarks General: Elderly male in no acute distress. Sitting up in a chair. Heart: Regular rate and rhythm. No murmur. Lungs: Clear to auscultation bilaterally. No wheezes, rales, or rhonchi. Breathing is nonlabored. Abdomen: Soft, nontender, nondistended. Extremities: 1+ bilateral lower extremity edema. Multiple surgical scars on both knees. Decreased erythema of the right lower leg. Psych: Alert and oriented. Procedures None Urinary Catheter: No Vascular Central Line Catheter: No A/P Problem List: (1) Generalized weakness ICD Code: R53.1 Status: Acute (2) Cellulitis of right lower leg ICD Code: L03.115 Status: Acute (3) Chronic pain ICD Code: G89.29 Status: Acute (4) Hypertension ICD Code: I10 Status: Chronic (5) GERD (gastroesophageal reflux disease) ICD Code: K21.9 Status: Chronic (6) Depression ICD Code: F32.9 Status: Chronic (7) ESRD (end stage renal disease) on dialysis ICD Code: N18.6 Status: Chronic (8) Infection of total right knee replacement ICD Code: T84.53XA Status: Acute Assessment and Plan 1. Generalized weakness: Likely multifactorial. Consult PT. Monitor labs. 2. Right lower extremity cellulitis: Improving. Appreciate orthopedic surgery recommendations. Continue antibiotics. Follow-up as outpatient with orthopedic surgery in [place]. 3. Coronary artery disease: Currently asymptomatic. Continue statin, MARIBETH inhibitor. 4. Chronic back pain: Continue pain control with morphine. 5. Anxiety/depression: Continue home medications. 6. End-stage renal disease: Hemodialysis per nephrology. Patient on Monday/ Monday/Monday schedule. 7. DVT prophylaxis: Heparin. Roosevelt Payton MD Nov 29, 2016 11:47
[2016-11-29] MEDS: SODIUM CHLOR 0.9% 1000 ML INJ 1,000 ML IV SCH ×2 (11:48→21:40)
[2016-11-29 12:00] VITALS: BP 97/55; PULSE 95; RESP 20; TEMP 99.3; O2SAT 95
[2016-11-29 16:00] VITALS: BP 115/70; PULSE 60; RESP 19; TEMP 98.6; O2SAT 92
--- NOTE | 2016-11-29 16:09 | HHI.NPPN ---
Subjective General Problems: Anemia, Edema, Hypertension Renal Failure: End Stage Renal Disease History of Present Illness 71-year-old male with past medical history of hypertension, ischemic heart disease post stenting, history of gastroesophageal reflux disease, severe osteoarthritis, came to the hospital with complaint of weakness and loose bowel motion. I was called to see the patient for management of dialysis. The patient has been following with Dr. Nunn and has been on hemodialysis Monday, Monday and Monday at [facility] in [facility]. Additional Remarks Patient is alert, sitting on chair, now started eating better and BM is improving. Review of Systems General Constitutional: Fever, Fatigue Cardiovascular Cardiac: [place] Gastrointestinal Gastrointestinal: Abdominal Pain, Diarrhea Objective Data Data 11/28/16 11/29/16 19:00 07:00 Intake Total 435 ml Output Total 3000 ml 0 ml Balance -3000 ml 435 ml Intake Oral 0 ml IV Total 435 ml Output Urine Total 0 ml Hemodialysis 3000 ml # Voids 0 # Bowel Movements 0 Vital Signs Date Time Temp Pulse Resp B/P Pulse Ox O2 Delivery O2 Flow Rate FiO2 11/29/16 12:00 99.3 95 20 97/55 95 11/29/16 10:16 17 11/29/16 08:00 98.2 80 19 136/63 95 11/29/16 07:36 94 21 11/28/16 23:40 99.9 75 19 146/65 87 11/28/16 20:52 72 11/28/16 20:30 99.0 68 19 146/65 95 -: 11/29/16 0403 11/29/16 0403 Physical Exam General Appearance: No Acute Distress, Comfortable Eyes Eye Exam: Pupils Equal Throat Throat Exam: Oral Mucosa [place] & Moist Neck Neck Exam: Neck Supple Pulmonary Resp Exam: Breath Sounds Equal, No Distress, Rhonchi, Decreased Bases Cardiology CV Exam: Regular, Normal Sinus Rhythm Gastrointestinal/Abdomen GI Exam: Soft, Non-Tender, Bowel Sounds Present Extremeties Extremities Exam: Trace Edema Neurologic Neuro Exam: Alert, Awake, Oriented Psychiatric Psych Exam: Appropriate Responses Assessment/Plan Assessment Summary: Anemia of CKD, End Stage Renal Disease Problem List: (1) Chronic pain (2) Hypertension (3) GERD (gastroesophageal reflux disease) (4) Generalized weakness (5) Infection of total right knee replacement (6) ESRD (end stage renal disease) on dialysis Plan Patient has HD done yesterday. Seen by Orthopaedics, unlikely to have infected knee. On Vanco. with HD. HD will be in AM. Has low grade fever. Now better. Diarrhea improving. HD will be in AM. To follow with his Orthopaedics in [place]. D/W the family at bed side. Problem Qualifiers (1) Hypertension: Qualified Code: I10 - Essential hypertension Yolanda Hester MD Nov 29, 2016 16:09
--- NOTE | 2016-11-29 18:02 | EKG ---
Date Performed: 11/28/2016 Time Performed: 11:55:14 PTAGE: 71 years EKG: Sinus rhythm Since previous tracing, no significant change noted NORMAL ECG PREVIOUS TRACING : 03/02/2016 10.33 DOCTOR: Sandip Marinelli Interpretating Date/Time 11/29/2016 18:01:38
[2016-11-29 20:00] VITALS: BP 152/70; PULSE 65; PULSE 68; RESP 20; TEMP 99.5; O2SAT 99
[2016-11-29] MEDS: PRAVASTATIN SOD 40 MG TAB PO SCH (21:39)
[2016-11-30] VITALS (15 sets, daily range): BP systolic 87–143; BP diastolic 26–69; PULSE 67–129; RESP 18–20; TEMP 97.2–102; O2SAT 96–100
[2016-11-30] MEDS: HEPARIN SODIUM - SQ 10,000 UNITS/ML VIAL SQ SCH ×2 (04:15→17:00)
[2016-11-30] MEDS: ACETAMINOPHEN 325 MG TAB PO PRN ×2 (04:15→20:04)
[2016-11-30 07:23] LABS: AUTOMATED NEUTROPHIL # 6.9 TH/MM3 (1.8-7.7); BASOPHIL % 0.6 % (0.0-2.0); EOSINOPHIL % 0.1 % (0.0-4.0); HEMATOCRIT 29.5 % (39.0-51.0); HEMO FLAGS DIFF FINAL; LYMPH % 2.1 % (9.0-44.0); LYMPHOCYTE # 0.2 TH/MM3 (1.0-4.8); MEAN CELL VOLUME 89.2 FL (80.0-100.0); MEAN CORPUSCULAR HEMOGLOBIN 29.1 PG (27.0-34.0); MEAN CORPUSCULAR HGB CONC 32.7 % (32.0-36.0); MONO % 2.4 % (0.0-8.0); NEUT % 94.8 % (16.0-70.0); PLATELET COUNT 205 TH/MM3 (150-450); RED BLOOD COUNT 3.31 MIL/MM3 (4.50-5.90); WHITE BLOOD COUNT 7.2 TH/MM3 (4.0-11.0)
[2016-11-30 07:27] LABS: BICARBONATE 22.3 MEQ/L (21.0-32.0); POTASSIUM 3.5 MEQ/L (3.5-5.1)
[2016-11-30 07:46] LABS: CALCIUM-PROTEIN CORRECTED 8.1 MG/DL (8.5-10.1)
--- NOTE | 2016-11-30 10:28 | HHI.NPPN ---
Subjective General Problems: Anemia, Edema, Hypertension Renal Failure: End Stage Renal Disease History of Present Illness 71-year-old male with past medical history of hypertension, ischemic heart disease post stenting, history of gastroesophageal reflux disease, severe osteoarthritis, came to the hospital with complaint of weakness and loose bowel motion. I was called to see the patient for management of dialysis. The patient has been following with Dr. Nunn and has been on hemodialysis Monday, Monday and Monday at [facility] in [facility]. Additional Remarks Patient is alert,seen during HD, alert, not in distress. Review of Systems General Constitutional: Fever, Fatigue Cardiovascular Cardiac: [place] Gastrointestinal Gastrointestinal: Abdominal Pain, Diarrhea Objective Data Data 11/29/16 11/30/16 19:00 07:00 Intake Total 1090 ml 840 ml Output Total 0 ml Balance 1090 ml 840 ml Intake Oral 880 ml 240 ml IV Total 210 ml 600 ml Output Urine Total 0 ml # Voids 1 # Bowel Movements 0 0 Vital Signs Date Time Temp Pulse Resp B/P Pulse Ox O2 Delivery O2 Flow Rate FiO2 11/30/16 08:00 98.8 85 19 139/69 96 11/30/16 05:53 98.4 11/30/16 05:20 99.8 11/30/16 05:15 20 11/30/16 04:00 100.1 88 19 143/65 96 11/30/16 00:00 97.2 67 19 141/64 97 11/29/16 22:40 20 11/29/16 20:00 65 11/29/16 20:00 65 11/29/16 20:00 99.5 68 20 152/70 99 11/29/16 18:16 21 11/29/16 16:00 98.6 60 19 115/70 92 11/29/16 12:00 99.3 95 20 97/55 95 -: 11/30/16 0628 11/30/16 0628 Physical Exam General Appearance: No Acute Distress, Comfortable Eyes Eye Exam: Pupils Equal Throat Throat Exam: Oral Mucosa [place] & Moist Neck Neck Exam: Neck Supple Pulmonary Resp Exam: Breath Sounds Equal, No Distress, Rhonchi, Decreased Bases Cardiology CV Exam: Regular, Normal Sinus Rhythm Gastrointestinal/Abdomen GI Exam: Soft, Non-Tender, Bowel Sounds Present Extremeties Extremities Exam: Trace Edema Neurologic Neuro Exam: Alert, Awake, Oriented Psychiatric Psych Exam: Appropriate Responses Assessment/Plan Assessment Summary: Anemia of CKD, End Stage Renal Disease Problem List: (1) Chronic pain (2) Hypertension (3) GERD (gastroesophageal reflux disease) (4) Generalized weakness (5) Infection of total right knee replacement (6) ESRD (end stage renal disease) on dialysis Plan Seen by Orthopaedics, unlikely to have infected knee. On Vanco. with HD. Has low grade fever. Diarrhea improving. To follow with his Orthopaedics in [place]. HD now, continue Vanco., follow cultures. Problem Qualifiers (1) Hypertension: Qualified Code: I10 - Essential hypertension Yolanda Hester MD Nov 30, 2016 10:28
[2016-11-30] MEDS: EPOETIN ALFA 10,000 UNITS/ML VIAL IV PRN (12:33)
[2016-11-30] MEDS: SEVELAMER CARBONATE 800 MG TAB PO SCH ×3 (13:00→17:55)
[2016-11-30] MEDS: LACTOBACILLUS ACIDOPHILUS TAB PO SCH (13:47)
[2016-11-30] MEDS: MORPHINE SULFATE 60 MG CONTROLLED RELEASE TAB PO SCH ×2 (13:48→21:00)
[2016-11-30] MEDS: busPIRone HCL 5 MG TAB PO SCH (13:48)
[2016-11-30] MEDS: ARIPiprazole 15 MG TAB PO SCH ×2 (13:48→21:00)
[2016-11-30] MEDS: SERTRALINE HCL 100 MG TAB PO SCH (13:48)
[2016-11-30] MEDS: LISINOPRIL 20 MG TAB PO SCH ×2 (13:49→21:00)
[2016-11-30] MEDS: VITAMIN B CMPLX/VITC/FOLIC AC CAP PO SCH (13:49)
--- NOTE | 2016-11-30 15:07 | HHI.PR ---
Subjective Remarks Follow-up right leg cellulitis. The patient had dialysis today. He states that he feels tired. He thinks his leg is improving. He is reporting abdominal discomfort and loose stools. Objective Vitals Vital Signs Date Time Temp Pulse Resp B/P Pulse Ox O2 Delivery O2 Flow Rate FiO2 11/30/16 08:00 98.8 85 19 139/69 96 11/30/16 05:53 98.4 11/30/16 05:20 99.8 11/30/16 05:15 20 11/30/16 04:00 100.1 88 19 143/65 96 11/30/16 00:00 97.2 67 19 141/64 97 11/29/16 22:40 20 11/29/16 20:00 65 11/29/16 20:00 65 11/29/16 20:00 99.5 68 20 152/70 99 11/29/16 18:16 21 11/29/16 16:00 98.6 60 19 115/70 92 I/O 11/29/16 11/29/16 11/29/16 11/30/16 11/30/16 11/30/16 07:00 15:00 23:00 07:00 15:00 23:00 Intake Total 385 ml 1090 ml 120 ml 720 ml Output Total 0 ml 2000 ml Balance 385 ml 1090 ml 120 ml 720 ml -2000 ml Intake Oral 0 ml 880 ml 120 ml 120 ml IV Total 385 ml 210 ml 600 ml Output Urine Total 0 ml Hemodialysis 2000 ml # Voids 0 1 0 # Bowel Movements 0 0 0 0 Result Diagram: 11/30/16 0628 11/30/16 0628 Imaging Last Impressions Knee MRI 11/28/16 0000 Signed Impressions: Service Date/Time: Monday, November 28, 2016 14:07 - CONCLUSION: Severely limited exam because of susceptibility artifact from the metal prosthesis. I do not see an abscess above or below the prosthesis. Joint is not evaluated. Higinio Suero MD FACR Chest X-Ray 11/28/16 0000 Signed Impressions: Service Date/Time: Monday, November 28, 2016 13:39 - CONCLUSION: Cardiomegaly with minimal parenchymal changes right base. Higinio Suero MD FACR Objective Remarks General: Elderly male in no acute distress. Sitting up in a chair. Heart: Regular rate and rhythm. No murmur. Lungs: Clear to auscultation bilaterally. No wheezes, rales, or rhonchi. Breathing is nonlabored. Abdomen: Soft, nontender, nondistended. Extremities: 1+ bilateral lower extremity edema. Multiple surgical scars on both knees. Decreased erythema of the right lower leg. Psych: Alert and oriented. Procedures None Urinary Catheter: No Vascular Central Line Catheter: No A/P Problem List: (1) Generalized weakness ICD Code: R53.1 Status: Acute (2) Cellulitis of right lower leg ICD Code: L03.115 Status: Acute (3) Chronic pain ICD Code: G89.29 Status: Chronic (4) Hypertension ICD Code: I10 Status: Chronic (5) GERD (gastroesophageal reflux disease) ICD Code: K21.9 Status: Chronic (6) Depression ICD Code: F32.9 Status: Chronic (7) ESRD (end stage renal disease) on dialysis ICD Code: N18.6 Status: Chronic Assessment and Plan 1. Generalized weakness: Likely multifactorial. Continue physical therapy Monitor labs. 2. Right lower extremity cellulitis: Improving. Appreciate orthopedic surgery recommendations. Continue antibiotics. Follow-up as outpatient with orthopedic surgery in [place]. Consult infectious disease. 3. Coronary artery disease: Currently asymptomatic. Continue statin, MARIBETH inhibitor. 4. Chronic back pain: Continue pain control with morphine. 5. Anxiety/depression: Continue home medications. 6. End-stage renal disease: Hemodialysis per nephrology. Patient on Monday/ Monday/Monday schedule. 7. DVT prophylaxis: Heparin. 8. Abdominal pain, diarrhea: Check C. difficile. Problem Qualifiers (1) Hypertension: Qualified Code: I10 - Essential hypertension Roosevelt Payton MD Nov 30, 2016 15:07
[2016-11-30] MEDS ORDERED: ROCURONIUM INJ 50 MG/5 ML VIAL ONE (18:09)
[2016-11-30] MEDS ORDERED: ETOMIDATE 20 MG/10 ML VIAL ONE (18:09)
[2016-11-30] MEDS ORDERED: NOREPINEPHRINE 4 MG/D5W 250 ML IV SCH (18:15)
[2016-11-30] MEDS ORDERED: PROPOFOL 1000 MG/100 ML INJ 100 ML ONE (18:26)
[2016-11-30] MEDS ORDERED: CHLORHEXIDINE GLUCONATE 2 % 1 PACK (2 CLOTHS)(extra cloths) TOP PRN (18:30)
[2016-11-30] MEDS ORDERED: TERBUTALINE INJ 1 MG/ML AMP SQ PRN ×2 (18:30→19:00)
[2016-11-30] MEDS ORDERED: PROPOFOL 1000 MG/100 ML INJ 100 ML IV SCH (18:45)
--- NOTE | 2016-11-30 18:47 | PD.PROCEDR ---
Central Line Procedure REASON FOR PROCEDURE Central venous access PROCEDURE PERFORMED Central line placement: Left IJ CVL CONSENT Informed consent for procedure was obtained. The risks and benefits of the procedure were discussed to include but limited to bleeding, clot formation, infection, and even . ANESTHESIA Local injection of 1% Lidocaine DESCRIPTION OF THE PROCEDURE The patient was placed in supine, mild Trendelenburg position. The area was exposed and cleansed with ChloraPrep, times two. Large sterile drape was used to cover the patient, with the site exposed, under sterile conditions including cap, face mask, sterile gown, and sterile gloves. On single attempt, the introducer needle was inserted with negative pressure in syringe and venous flash was obtained. The guide wire was then advanced without any restriction and the needle was removed. The dilator was used without any complications. Using Seldinger technique the triple-lumen catheter was advanced over the guide wire to a depth of 20 centimeters. The guide wire was removed. All ports were aspirated with dark venous blood return and flushed easily with sterile saline. All ports were capped. Antibiotic disc was placed around central line at puncture site. The central line was secured to the skin with two interrupted 2.0 silk sutures. The area was bandaged with sterile see-through central line bandage. RADIOLOGICAL DATA Ultrasound guidance was used to locate the left internal jugular vein. Doppler/ color flow was used to confirm venous flow. COMPLICATIONS: No apparent complications ESTIMATED BLOOD LOSS: Less than 1 cc. Colton Holliday MD Nov 30, 2016 18:47
--- NOTE | 2016-11-30 18:48 | PD.PROCEDR ---
Procedure Note Procedure DATE: 11/30/16 PROCEDURE: Orotracheal intubation INDICATION: Respiratory failure DETAILS OF PROCEDURE The patient was placed in optimal position and preoxygenated with 100% FiO2 via bag valve mask. At the start oxygen saturation was 100%. The patient was administered 20 mg etomidate IV. I entered the oropharynx with a size 4 glide scope blade and obtained a grade 2 view of the airway. On single attempt a size 8.0 cuffed endotracheal tube was passed through the vocal cords. Correct tube location was confirmed with end tidal CO2 detector and by auscultating over bilateral lung wallace. The endotracheal tube was secured with adhesive tape at a depth of 24 cm at the lips. The patient was connected to the ventilator. The patient tolerated the procedure well without any apparent complications. Oxygen saturations were maintained greater than 95% all times. STAT chest x-ray []. Colton Holliday MD Nov 30, 2016 18:48
--- NOTE | 2016-11-30 18:50 | PD.CONS ---
[facility] Service Critical Care Medicine Consult Requested By Dr. Payton Reason for Consult Altered mental status Primary Care Physician Unknown History of Present Illness 1-year-old male. Date of admission 11/28/2016. Date of consultation 11/30/2016. Past medical history includes end-stage renal disease on hemodialysis Monday was a Monday, hypertension, dyslipidemia, coronary disease status post stent, osteoarthritis with bilateral total knee replacement, chronic low back pain and gastroscope reflux disease. He also has a history of C. difficile and MRSA. He presents to [facility] with a few day history of lower extremity weakness. Specifically weakness in his right knee. He was started vancomycin with hemodialysis Patient was admitted on the hospitalist service. MRI of the knee revealed no acute findings. Was seen by Dr. Ac/orthopedics do not believe this is a septic joint. Follow-up with regular orthopedic physician. After hemodialysis today, patient received Zofran, or mouth lisinopril. Patient was hypotensive and altered on the floor. Transferred to [facility] for further evaluation treatment. Patient was noted to be tachypneic in the 40s hypotensive. Decision made to intubate emergently and central line placed for vasopressor requirements. Review of Systems ROS Limitations: Intubated Past Family Social History Allergies: Coded Allergies: Citalopram (Verified Allergy, Intermediate, sweating, 11/07/16) Effexor (Verified Allergy, Intermediate, sweating, 11/07/16) Lamisil (Verified Allergy, Intermediate, rash, 11/07/16) Caduet (Verified Allergy, Mild, anxiety, 11/07/16) Clonidine (Verified Allergy, Mild, anxiety, 11/07/16) Cymbalta (Verified Allergy, Mild, sweating, 11/07/16) Oxycontin (Verified Allergy, Mild, anxiety, 11/07/16) Past Medical History Hypertension Dyslipidemia Gastroesophageal reflux disease End-stage renal disease on hemodialysis Monday/Monday/Monday Chronic low back pain Osteoarthritis Coronary artery disease History of MRSA History of C. difficile History of right retinal detachment Past Surgical History Coronary artery stent 2 Cholecystectomy Bilateral total knee replacements 2 L4/5 laminectomy Left AV fistula Prior tracheostomy 2 years ago status post decannulization Reported Medications Nephrocaps 1 capsule daily Lisinopril 20 mg by mouth twice a day Doxazosin 4 mg by mouth twice a day Simvastatin 20 mg by mouth at bedtime Abilify 50 mg by mouth twice a day Sertraline 100 mg by mouth daily Morphine CR 120 mg by mouth every 12 hours Centrum with iron 1 Daily Renvela 800 mg 3 times a day Vitamin D 2000 units daily Vitamin C 500 mg daily BuSpar 15 mg by mouth daily Tylenol as needed Active Ordered Medications Reviewed in EMR Family History Sr. with Crohn's disease. Social History Quit tobacco at age 38. No alcohol or IV drug use. Physical Exam Vital Signs Vital Signs Date Time Temp Pulse Resp B/P Pulse Ox O2 Delivery O2 Flow Rate FiO2 11/30/16 18:29 100 50 11/30/16 17:15 101.3 92 20 100/49 98 11/30/16 16:53 100 21 11/30/16 16:51 100 Nasal Cannula 21 11/30/16 15:15 101.3 92 20 100/49 98 11/30/16 08:00 98.8 85 19 139/69 96 11/30/16 05:53 98.4 11/30/16 05:20 99.8 11/30/16 05:15 20 11/30/16 04:00 100.1 88 19 143/65 96 11/30/16 00:00 97.2 67 19 141/64 97 11/29/16 22:40 20 11/29/16 20:00 65 11/29/16 20:00 65 11/29/16 20:00 99.5 68 20 152/70 99 Physical Exam GENERAL: 71-year-old male, critically ill currently orotracheally intubated SKIN: Warm and dry. No rash HEAD: Atraumatic. Normocephalic. EYES: Right pupil somewhat irregular. Slightly reactive bilaterally. No scleral icterus. No injection or drainage. ENT: No nasal bleeding or discharge. Mucous membranes pink and moist. NECK: Trachea midline. No JVD. Scoliotic neck. Tracheostomy scar noted. Left IJ clean dry and intact. Looks towards right CARDIOVASCULAR: Tachycardic, RR. S1, S2 no S4. No murmur RESPIRATORY: Ms. breath sounds. No wheezes rales or rhonchi.. Breath sounds equal bilaterally. GASTROINTESTINAL: Abdomen soft, non-tender, nondistended. Positive bowel sounds. MUSCULOSKELETAL: Extremities without peripheral edema. No obvious deformities. NEUROLOGICAL: Sedate on the ventilator on propofol. Prior to intubation moved all 4 extremities spontaneously and give thumbs up with right hand. Laboratory Laboratory Tests Test 11/30/16 06:28 White Blood Count 7.2 Red Blood Count 3.31 Hemoglobin 9.6 Hematocrit 29.5 Mean Corpuscular Volume 89.2 Mean Corpuscular Hemoglobin 29.1 Mean Corpuscular Hemoglobin 32.7 Concent Red Cell Distribution Width 16.0 Platelet Count 205 Mean Platelet Volume 6.9 Neutrophils (%) (Auto) 94.8 Lymphocytes (%) (Auto) 2.1 Monocytes (%) (Auto) 2.4 Eosinophils (%) (Auto) 0.1 Basophils (%) (Auto) 0.6 Neutrophils # (Auto) 6.9 Lymphocytes # (Auto) 0.2 Monocytes # (Auto) 0.2 Eosinophils # (Auto) 0.0 Basophils # (Auto) 0.0 CBC Comment DIFF FINAL Differential Comment Sodium Level 140 Potassium Level 3.5 Chloride Level 104 Carbon Dioxide Level 22.3 Anion Gap 14 Blood Urea Nitrogen 40 Creatinine 7.42 Estimat Glomerular Filtration 7 Rate Random Glucose 102 Calcium Level 7.2 Protein Corrected Calcium 8.1 Total Protein 5.5 Result Diagram: 11/30/1662711/30/16627 Imaging Last Impressions Knee MRI 11/28/16 0000 Signed Impressions: Service Date/Time: Monday, November 28, 2016 14:07 - CONCLUSION: Severely limited exam because of susceptibility artifact from the metal prosthesis. I do not see an abscess above or below the prosthesis. Joint is not evaluated. Higinio Suero MD FACR Chest X-Ray 11/28/16 0000 Signed Impressions: Service Date/Time: Monday, November 28, 2016 13:39 - CONCLUSION: Cardiomegaly with minimal parenchymal changes right base. Higinio Suero MD FACR Assessment and Plan Assessment and Plan Neuro/Psych: Depression/anxiety Acute encephalopathy likely toxic metabolic Chronic narcotic use Currently on propofol/fentanyl drips for sedation/analgesia while intubated RASS -2 goal Daily sedation vacation CT head are ordered Continue home medications of Abilify 15 mill grams twice a day, Zoloft 100 mg daily and BuSpar 15 no grams daily for depression/anxiety Patient is on Oramorph 120 mg by mouth twice a day for chronic pain management. CV: Hypotension History of hypertension History dyslipidemia Coronary artery disease status post stent 2 Patient is on lisinopril 20 mg twice a day and doxazosin 4 mg by mouth twice a day. Hold if hypotensive and or on vasopressors On normal saline 75 cc an hour. Status post 1 L ns bolus Currently on Pravachol 40 mg daily/hospital cost efficient substitution for simvastatin 20 mg by mouth at night for dyslipidemia Lactic acid pending. Check EKG/cardiac enzymes and echocardiogram tonight Check CVP Resp: Acute hypoxic and hypercapnic respiratory failure Hospital due to hypoperfusion secondary to sepsis? Medication induced? [facility] / Ventilator bundle As needed bronchodilator therapy Spontaneous breathing trials daily Follow-up post intubation ABG/chest x-ray GI: Gastroesophageal reflux disease Current patient's currently nothing by mouth OG tube replaced Protonix IV daily GI prophylaxis. Colace/as needed Senokot for bowel regimen. : [place] if indicated for accurate I's and O's in a critically ill patient Endo: Sliding-scale insulin if indicated to maintain euglycemia Renal: End-stage renal disease on hemodialysis Monday/Monday/Monday Status post hemodialysis today. Nephrology following Heme: Normocytic anemia Monitor CBC/coags now ID: Monitor for infection. Evaluated this hospitalization for possible septic right knee joint Dr. Ac/ orthopedics. He does not believe this is a septic joint. MRI nonspecific Currently in vancomycin 1 g with hemodialysis Check blood cultures 2, sputum and urine output MSK: Chronic low back pain History of L4/L5 laminectomy Bilateral total knee replacements 2 PT evaluate and treat FEN: Hyperphosphatemia Replace electrolytes as clinically indicated On Renvela 800 mg 3 times a day. Access - Left IJ CVL day #1 Prophylaxis - GI - Protonix - DVT - SCD/heparin subcutaneous Critical Care: The total critical care time was 55 minutes. Time to perform other separately billable procedures was not included in the critical care time. Code Status Full code Discussed Condition With RN. Patient. Care plan discussed and all questions answered. Colton Holliday MD Nov 30, 2016 18:50
[2016-11-30] MEDS ORDERED: SODIUM CHLORIDE 0.9% FLUSH 5 ML FLUSH IVF PRN (19:00)
[2016-11-30] MEDS: PHENYLEPHRINE 40 MG/D5W 496 ML ADMIX IV SCH ×4 (19:02→23:00)
[2016-11-30] MEDS ORDERED: SENNOSIDES 8.6 MG TAB PO PRN (19:30)
[2016-11-30] MEDS ORDERED: ONDANSETRON HCL 4 MG/2 ML VIAL IV PRN (19:30)
[2016-11-30] MEDS ORDERED: CHLORHEXIDINE GLUCONATE 2 % 1 PACK (2 CLOTHS) TOP PRN (19:30)
[2016-11-30] MEDS ORDERED: MISCELLANEOUS NURSING INFORMATION XX SCH (19:30)
[2016-11-30] MEDS ORDERED: RESP: ALBUTEROL 2.5 MG/IPRATROPIUM 0.5 MG NEB (PRN) INH (19:30)
[2016-11-30 19:38] LABS: BLOOD GAS BASE EXCESS -2.2 mmol/L (-2-2); BLOOD GAS CARBOXYHEMOGLOBIN 0.9 % (0-4); BLOOD GAS HCO3 24 mmol/L (22-26); BLOOD GAS METHEMOGLOBIN 1.5 % (0-2); BLOOD GAS O2 HGB SATURATION 96 % (90-100); BLOOD GAS OXYGEN CONTENT 14.2 Vol % (12.0-20.0); BLOOD GAS PCO2 60 mmHg (38-42); BLOOD GAS PO2 132 mmHg (61-120); BLOOD GAS TOTAL HGB 10.4 G/DL (12.0-16.0); TEMP CORR TO 98.6
[2016-11-30 19:39] LABS: CRITICAL VALUE YES; DRAW SITE LT RADIAL; FIO2 40 %; NUMBER OF ARTERIAL PUNCTURES 1; OXYGEN DEVICE VENTILATOR; STAT NO; ULNAR PULSE PRESENT; VENT SETTINGS PRVC/AC
[2016-11-30] MEDS ORDERED: DIATRIZOATE MEGLUM/DIATRIZOATE SOD 9 ML CUP PO ONE (19:45)
--- NOTE | 2016-11-30 19:51 | RADRPT ---
EXAM DATE/TIME: 11/30/2016 19:08 [place] COMPARISON: CHEST SINGLE AP, November 28, 2016, 13:39. INDICATIONS : Post ET tube and central line placement. MEDICAL HISTORY : Hypertension. Renal failure, chronic. SURGICAL HISTORY : Total knee replacement, right. Discectomy, lumbar. Cholecystectomy. ENCOUNTER: Subsequent ACUITY: 3 days PAIN SCORE: Non-responsive. LOCATION: Bilateral chest FINDINGS: A single view of the chest demonstrates endotracheal tube in satisfactory position. NG enters stomach . Left central line tip in superior vena cava. Subsegmental basilar air space disease. Small right ef fusion. No pneumothorax. CONCLUSION: 1. Basilar airspace disease right greater than left with small right effusion similar to November 28. Endotracheal tube, left central line and nasogastric tube in satisfactory position. Arian Coles MD on November 30, 2016 at 19:49 Board Certified Radiologist. This report was verified electronically.
[2016-11-30] MEDS ORDERED: PHENYLEPHRINE INJ 40 MG in DEXTROSE 5% IN WATE 500 ML INJ 496 ML IV SCH ×2 (20:00)
[2016-11-30] MEDS ORDERED: SODIUM CHLOR 0.9% 1000 ML INJ 1,000 ML IV ONE ×2 (20:30)
[2016-11-30 21:12] LABS: AUTOMATED NEUTROPHIL # 12.2 TH/MM3 (1.8-7.7); BASOPHIL % 0.3 % (0.0-2.0); HEMATOCRIT 30.3 % (39.0-51.0); HEMO FLAGS DIFF FINAL; LYMPH % 2.1 % (9.0-44.0); LYMPHOCYTE # 0.3 TH/MM3 (1.0-4.8); MEAN CELL VOLUME 89.8 FL (80.0-100.0); MEAN CORPUSCULAR HEMOGLOBIN 28.5 PG (27.0-34.0); MEAN CORPUSCULAR HGB CONC 31.8 % (32.0-36.0); MONO % 2.2 % (0.0-8.0); NEUT % 95.4 % (16.0-70.0); PLATELET COUNT 227 TH/MM3 (150-450); RED BLOOD COUNT 3.38 MIL/MM3 (4.50-5.90); RED CELL DISTRIBUTION WIDTH 16.4 % (11.6-17.2); WHITE BLOOD COUNT 12.8 TH/MM3 (4.0-11.0)
[2016-11-30] MEDS: CHLORHEXIDINE 0.12% (ORAL KIT) 15 ML CUP MT SCH (21:13)
[2016-11-30] MEDS: HYDROCORTISONE SOD SUCCINATE 100 MG VIAL IV PUSH SCH (21:20)
[2016-11-30] MEDS: DOCUSATE SODIUM 100 MG CAP PO SCH (21:20)
[2016-11-30] MEDS: PRAVASTATIN SOD 40 MG TAB PO SCH (21:20)
[2016-11-30] MEDS: PANTOPRAZOLE SODIUM 40 MG VIAL IV PUSH SCH (21:21)
[2016-11-30 21:22] LABS: APTT (PATIENT) 51.3 SEC (24.3-30.1)
[2016-11-30] MEDS: VASOPRESSIN INJ 40 UNITS in DEXTROSE 5% IN WATER 100ML INJ 98 ML IV SCH ×2 (21:23)
[2016-11-30 21:48] LABS: BICARBONATE 29.9 MEQ/L (21.0-32.0); CALCIUM-PROTEIN CORRECTED 7.5 MG/DL (8.5-10.1); MAGNESIUM 1.2 MG/DL (1.5-2.5); POTASSIUM 3.7 MEQ/L (3.5-5.1); TOTAL BILIRUBIN ADULT 2.7 MG/DL (0.2-1.0)
[2016-11-30] MEDS: SODIUM CHLOR 0.9% 1000 ML INJ 1,000 ML IV SCH (22:20)
[2016-12-01] VITALS (15 sets, daily range): BP systolic 90–130; BP diastolic 38–66; PULSE 95–121; RESP 18–24; TEMP 99.3–102.6; O2SAT 92–100
[2016-12-01] MEDS: PHENYLEPHRINE 40 MG/D5W 496 ML ADMIX IV SCH ×8 (01:12→08:34)
[2016-12-01] MEDS ORDERED: TERBUTALINE INJ 1 MG/ML AMP SQ PRN (02:00)
[2016-12-01] MEDS: fentaNYL DRIP 250 ML IV SCH ×2 (03:06→20:11)
[2016-12-01] MEDS: NOREPINEPHRINE-DEXTROSE DRIP 250 ML IV SCH ×5 (03:06→10:46)
[2016-12-01] MEDS: MAGNESIUM SULFATE 1 GM PREMIX 100 ML IV SCH ×2 (03:07→04:06)
[2016-12-01] MEDS ORDERED: CHLORHEXIDINE GLUCONATE 2 % 1 PACK (2 CLOTHS)(taper/protocol) TOP SCH (04:00)
[2016-12-01] MEDS ORDERED: CHLORHEXIDINE GLUCONATE 2 % 1 PACK (2 CLOTHS) TOP SCH (04:00)
[2016-12-01] MEDS: HYDROCORTISONE SOD SUCCINATE 100 MG VIAL IV PUSH SCH ×3 (04:34→20:01)
[2016-12-01] MEDS: HEPARIN SODIUM - SQ 10,000 UNITS/ML VIAL SQ SCH ×2 (04:34→18:29)
--- NOTE | 2016-12-01 04:53 | EKG ---
Date Performed: 11/30/2016 Time Performed: 21:36:22 PTAGE: 71 years EKG: SINUS TACHYCARDIA WITH FREQUENT VENTRICULAR PREMATURE COMPLEXES ABNORMAL RHYTHM ECG COMPARE D TO PRIOR ELECTROCARDIOGRAM, Rate has increased and PVCs are present. PREVIOUS TRACING : 11/28/2016 11.55 DOCTOR: Yovani Roman Interpretating Date/Time 12/01/2016 04:52:15
[2016-12-01 05:41] LABS: AUTOMATED NEUTROPHIL # 22.6 TH/MM3 (1.8-7.7); BASOPHIL % 0.1 % (0.0-2.0); EOSINOPHIL % 0.1 % (0.0-4.0); HEMATOCRIT 27.2 % (39.0-51.0); HEMO FLAGS DIFF FINAL; LYMPH % 1.4 % (9.0-44.0); LYMPHOCYTE # 0.3 TH/MM3 (1.0-4.8); MEAN CELL VOLUME 91.1 FL (80.0-100.0); MEAN CORPUSCULAR HEMOGLOBIN 28.5 PG (27.0-34.0); MEAN CORPUSCULAR HGB CONC 31.2 % (32.0-36.0); MONO % 1.5 % (0.0-8.0); NEUT % 96.9 % (16.0-70.0); PLATELET COUNT 198 TH/MM3 (150-450); RED BLOOD COUNT 2.98 MIL/MM3 (4.50-5.90); RED CELL DISTRIBUTION WIDTH 16.7 % (11.6-17.2); WHITE BLOOD COUNT 23.3 TH/MM3 (4.0-11.0)
[2016-12-01 06:02] LABS: APTT (PATIENT) 61.3 SEC (24.3-30.1); INTERNATIONAL NORMALIZED RATIO 2.6 RATIO; PROTHROMBIN TIME - PATIENT 29.5 SEC (9.8-11.6)
[2016-12-01 06:13] LABS: BICARBONATE 18.3 MEQ/L (21.0-32.0); MAGNESIUM 1.6 MG/DL (1.5-2.5); POTASSIUM 3.4 MEQ/L (3.5-5.1)
[2016-12-01 06:31] LABS: CALCIUM-PROTEIN CORRECTED 7.9 MG/DL (8.5-10.1)
[2016-12-01] MEDS: ARTIFICIAL TEARS OPTH SOLN 15 ML BTL EACH EYE SCH ×4 (08:34→20:01)
[2016-12-01] MEDS: LACTOBACILLUS ACIDOPHILUS TAB PO SCH (08:35)
[2016-12-01] MEDS: DOCUSATE SODIUM 100 MG CAP PO SCH ×2 (08:35→19:46)
[2016-12-01] MEDS: SEVELAMER CARBONATE 800 MG TAB PO SCH ×3 (08:35→18:29)
[2016-12-01] MEDS: ARIPiprazole 15 MG TAB PO SCH ×2 (08:35→19:46)
[2016-12-01] MEDS: MORPHINE SULFATE 60 MG CONTROLLED RELEASE TAB PO SCH ×2 (08:35→19:45)
[2016-12-01] MEDS: VITAMIN B CMPLX/VITC/FOLIC AC CAP PO SCH (08:35)
[2016-12-01] MEDS: busPIRone HCL 5 MG TAB PO SCH (08:35)
[2016-12-01] MEDS: LISINOPRIL 20 MG TAB PO SCH ×2 (08:36→19:45)
[2016-12-01] MEDS: SERTRALINE HCL 100 MG TAB PO SCH (08:36)
[2016-12-01] MEDS: CHLORHEXIDINE 0.12% (ORAL KIT) 15 ML CUP MT SCH ×2 (08:37→20:00)
[2016-12-01] MEDS ORDERED: PANTOPRAZOLE SODIUM 40 MG VIAL IV SCH (09:00)
[2016-12-01] MEDS ORDERED: SODIUM CHLORIDE 0.9% FLUSH 5 ML FLUSH IVF SCH (09:00)
--- NOTE | 2016-12-01 11:05 | HHI.NPPN ---
Subjective General Problems: Anemia, Edema, Hypertension Renal Failure: End Stage Renal Disease History of Present Illness 71-year-old male with past medical history of hypertension, ischemic heart disease post stenting, history of gastroesophageal reflux disease, severe osteoarthritis, came to the hospital with complaint of weakness and loose bowel motion. I was called to see the patient for management of dialysis. The patient has been following with Dr. Nunn and has been on hemodialysis Monday, Monday and Monday at [facility] in [facility]. Additional Remarks Patient is now intubated, awake and responding to verbal commands. Review of Systems General Constitutional: Fever, Fatigue Cardiovascular Cardiac: [place] Gastrointestinal Gastrointestinal: Abdominal Pain, Diarrhea Objective Data Data 11/30/16 12/01/16 19:00 07:00 Intake Total 6729 ml Output Total 2000 ml 0 ml Balance -2000 ml 6729 ml IV Total 6729 ml Output Urine Total 0 ml Hemodialysis 2000 ml # Voids 1 # Bowel Movements 0 Vital Signs Date Time Temp Pulse Resp B/P Pulse Ox O2 Delivery O2 Flow Rate FiO2 12/01/16 08:13 100 40 12/01/16 06:00 114 12/01/16 04:06 100 40 12/01/16 04:00 99.3 109 112/55 12/01/16 04:00 109 12/01/16 04:00 40 12/01/16 02:00 95 12/01/16 01:12 100 40 12/01/16 00:00 100.8 104 18 90/50 100 12/01/16 00:00 40 12/01/16 00:00 104 11/30/16 22:35 100 40 11/30/16 22:00 121 11/30/16 20:00 129 11/30/16 20:00 102.0 129 18 87/26 100 11/30/16 20:00 40 11/30/16 19:40 100 40 11/30/16 18:29 100 50 11/30/16 18:00 127 11/30/16 17:15 101.3 92 20 100/49 98 11/30/16 16:53 100 21 11/30/16 16:51 100 Nasal Cannula 21 11/30/16 15:15 101.3 92 20 100/49 98 -: 12/01/16 0515 12/01/16 0515 Microbiology 11/30/16 Aerobic Blood Culture, Resulted Pending 11/30/16 Anaerobic Blood Culture - Preliminary, Resulted Gram Negative [place] 11/30/16 Aerobic Blood Culture, Resulted Pending 11/30/16 Anaerobic Blood Culture - Preliminary, Resulted Gram Negative [place] Physical Exam General Appearance: No Acute Distress, Comfortable Eyes Eye Exam: Pupils Equal Throat Throat Exam: Oral Mucosa [place] & Moist Neck Neck Exam: Neck Supple Pulmonary Resp Exam: Breath Sounds Equal, No Distress, Rhonchi, Decreased Bases, Diminished Breath Sounds Cardiology CV Exam: Regular, Normal Sinus Rhythm Gastrointestinal/Abdomen GI Exam: Soft, Non-Tender, Bowel Sounds Present Extremeties Extremities Exam: Trace Edema Neurologic Neuro Exam: Awake Assessment/Plan Assessment Summary: Anemia of CKD, End Stage Renal Disease Problem List: (1) Chronic pain (2) Hypertension (3) GERD (gastroesophageal reflux disease) (4) Generalized weakness (5) Infection of total right knee replacement (6) ESRD (end stage renal disease) on dialysis Plan Seen by Orthopaedics, unlikely to have infected knee. On Vanco. with HD. Has low grade fever. Diarrhea improving. To follow with his Orthopaedics in [place]. Now develop Hypotension and Resp. failure. Now getting Echo. Has Lactic acidosis. BC growing Gram negative. Add Jos, ID consulted. HD is due in AM, currently on pressors. DF/W the RN an family at bed side. Problem Qualifiers (1) Hypertension: Qualified Code: I10 - Essential hypertension Yolanda Hester MD Dec 01, 2016 11:05
--- NOTE | 2016-12-01 12:40 | PD.PROCEDR ---
Procedure Note Procedure ARTERIAL LINE (A-Line) PLACEMENT Date: 12/01/16 Time: 11:30 Indication: Hemodynamic monitoring Resident: Bruna Hernandez MD Attending: Dr. Yo Oseguera A time-out was completed verifying correct patient, procedure, site, positioning , and special equipment if applicable. The patients right wrist was prepped and draped in sterile fashion. 1% Lidocaine was used to anesthetize the area. A 18G arterial line was introduced into the radial artery. The catheter was threaded over the guide wire and the needle was removed with appropriate pulsatile blood return. The catheter was then sutured in place to the skin and a sterile dressing applied. Perfusion to the extremity distal to the point of catheter insertion was checked and found to be adequate. Dr. Oseguera was present for the entire procedure. Estimated Blood Loss: minimal The patient tolerated the procedure well and there were no complications. Bruna Hernandez MD R1 Dec 01, 2016 12:40
[2016-12-01] MEDS ORDERED: NOREPINEPHRINE 16 MG/D5W 250 ML IV SCH ×2 (13:00)
[2016-12-01] MEDS ORDERED: ALBUMIN HUMAN 5% 25 GM/500 ML BOTTLE IV ONE (13:00)
[2016-12-01] MEDS ORDERED: PHENYLEPHRINE HCL 160 MG/D5W 484 ML ADMIX IV SCH ×2 (13:00)
--- NOTE | 2016-12-01 13:10 | EC ---
Study Study Date:12/01/2016 STUDY CONCLUSIONS SUMMARY - Procedure narrative: Transthoracic echocardiography. Image quality was poor. Scanning was performed from the parasternal, apical, and subcostal acoustic windows. - Left ventricle: The cavity size was dilated. Wall thickness was normal. Systolic function was moderately reduced by visual assessment. The estimated ejection fraction was in the range of 35% to 45%. Wall motion was normal; there were no regional wall motion abnormalities. If LV function is below 40, please consider prescribing an ACEI or ARB or document rationale for non-use. PROCEDURE DATA STUDY STATUS: Elective. Procedure: Transthoracic echocardiography. Image quality was poor. Scanning was performed from the parasternal, apical, and subcostal acoustic windows. Study completion: The patient tolerated the procedure well. Transthoracic echocardiography. M-mode, complete 2D, complete spectral Doppler, and color Doppler. Patient status: Inpatient. CARDIAC ANATOMY LEFT VENTRICLE: Poorly visualized. The cavity size was dilated. Wall thickness was normal. Systolic function was moderately reduced by visual assessment. The estimated ejection fraction was in the range of 35% to 45%. Wall motion was normal; there were no regional wall motion abnormalities. AORTIC VALVE: Trileaflet; normal thickness leaflets. Doppler: Transvalvular velocity was within the normal range. There was no stenosis. No regurgitation. AORTA: Aortic root: The aortic root was normal in size. MITRAL VALVE: Structurally normal valve. Doppler: Transvalvular velocity was within the normal range. There was no evidence for stenosis. No regurgitation. Peak gradient: 3mm Hg (D). LEFT ATRIUM: The atrium was normal in size. RIGHT VENTRICLE: The cavity size was normal. Wall thickness was normal. PULMONIC VALVE: Doppler: Transvalvular velocity was within the normal range. There was no evidence for stenosis. No regurgitation. TRICUSPID VALVE: Structurally normal valve. Doppler: Transvalvular velocity was within the normal range. No regurgitation. PULMONARY ARTERY: The main pulmonary artery was normal-sized. Systolic pressure was within the normal range. RIGHT ATRIUM: The atrium was normal in size. PERICARDIUM: There was no pericardial effusion. SYSTEMIC VEINS: Inferior vena cava: The vessel was normal in size. BASIC MEASUREMENTS ADULT Normal Left ventricle LV internal dimension, ED, chordal level, *53.3 mm 43-52 PLAX LV posterior wall thickness, ED 9.94 mm IVS/LVPW ratio, ED 1.12 <1.3 Ventricular septum Septal thickness, ED 11.1 mm Left atrium Anterior-posterior dimension 38 mm Right ventricle RV internal dimension, ED, PLAX 30.5 mm 19-38 DOPPLER MEASUREMENTS ADULT Normal Main pulmonary artery Pressure, S 15 mm Hg =30 Mitral valve Peak E-wave velocity 82.9 cm/s Peak A-wave velocity 72.1 cm/s Peak gradient, D 3 mm Hg Peak E/A ratio 1.1 Tricuspid valve Regurgitant peak velocity 162 cm/s Peak RV-RA gradient, S 10 mm Hg Maximal regurgitant velocity 162 cm/s Systemic veins Estimated CVP 5 mm Hg Right ventricle RV pressure, S 15 mm Hg <30 LEGEND: Mean values are shown as u=mean value. Asterisk (*) pruitt values outside specified normal range. Prepared and signed by Azael Jones [id number]
[2016-12-01] MEDS: SODIUM CHLOR 0.9% 1000 ML INJ 1,000 ML IV SCH ×2 (14:30→20:02)
[2016-12-01] MEDS: PIPERACIL-TAZO 2.25 GM PREMIX 50 ML IV SCH ×2 (15:09→20:01)
--- NOTE | 2016-12-01 16:08 | PD.ID.CON ---
History of Present Illness Service ID Consult Requested By Dr Saenz Reason for Consult sepsis, gram negative Primary Care Physician Unknown Diagnoses: History of Present Illness 71 yo male with h/o end-stage renal disease on hemodialysis Monday was a Monday, hypertension, dyslipidemia, coronary disease status post stent, osteoarthritis with bilateral total knee replacement, chronic low back pain and gastroscope reflux disease. He also has a history of C. difficile and MRSA. He presents to [facility] 3 days ago with a few day history of lower extremity weakness. Specifically weakness in his right knee. He was started vancomycin with hemodialysis Patient was admitted on the hospitalist service. MRI of the knee revealed no acute findings. Was seen by Dr. Ac/orthopedics do not believe this is a septic joint. Follow-up with regular orthopedic physician. After hemodialysis today , patient became hypotensive and was transferred to [facility] for further evaluation treatment. Patient was noted to be tachypneic in the 40s hypotensive. He was intubated emergently and central line placed Pt is on escalating doses of pressors, including neosynephrin vasopressin and levaped Too nstable for CT a/p which was s=orders Lactric acid is high Blood clx all growing E.coli Soft stool Review of Systems ROS Limitations: Clinical Condition, Altered Mental Status, Unresponsive Past Family Social History Allergies: Coded Allergies: Citalopram (Verified Allergy, Intermediate, sweating, 11/07/16) Effexor (Verified Allergy, Intermediate, sweating, 11/07/16) Lamisil (Verified Allergy, Intermediate, rash, 11/07/16) Caduet (Verified Allergy, Mild, anxiety, 11/07/16) Clonidine (Verified Allergy, Mild, anxiety, 11/07/16) Cymbalta (Verified Allergy, Mild, sweating, 11/07/16) Oxycontin (Verified Allergy, Mild, anxiety, 11/07/16) *MDRO Multi-Drug Resistant Organism (Verified Adverse Reaction, Unknown, ) MRSA PCR screen POSITIVE - 11/30/16 Past Medical History Hypertension Hyperlipidemia GERD Chronic back pain End-stage renal disease on hemodialysis Monday/Monday/Monday Anxiety/depression Coronary artery disease Osteoarthritis Past Surgical History Coronary artery stent 2 Cholecystectomy Bilateral knee replacement 2 Active Ordered Medications Medications where reviewed in EMR Antibiotics Include: zosyn vanco with HD Family History Sister with Crohn's disease. Social History Quit smoking 30+ years ago. Denies alcohol or illicit drug use. Physical Exam Vital Signs Vital Signs Date Time Temp Pulse Resp B/P Pulse Ox O2 Delivery O2 Flow Rate FiO2 12/01/16 12:00 40 12/01/16 12:00 99.9 109 23 121/56 12/01/16 11:28 96 40 12/01/16 08:13 100 40 12/01/16 08:00 40 12/01/16 08:00 110 12/01/16 08:00 100.5 110 24 118/56 100 12/01/16 06:00 114 12/01/16 04:06 100 40 12/01/16 04:00 99.3 109 112/55 12/01/16 04:00 109 12/01/16 04:00 40 12/01/16 02:00 95 12/01/16 01:12 100 40 12/01/16 00:00 100.8 104 18 90/50 100 12/01/16 00:00 40 12/01/16 00:00 104 11/30/16 22:35 100 40 11/30/16 22:00 121 11/30/16 20:00 129 11/30/16 20:00 102.0 129 18 87/26 100 11/30/16 20:00 40 11/30/16 19:40 100 40 11/30/16 18:29 100 50 11/30/16 18:00 127 11/30/16 17:15 101.3 92 20 100/49 98 11/30/16 16:53 100 21 11/30/16 16:51 100 Nasal Cannula 21 Physical Exam CONSTITUTIONAL/GENERAL: sedated intubated; unresponsive TUBES/LINES/DRAINS: AVF in place LUE; site OK, thrill + SKIN: No jaundice, rashes, or lesions. Skin temperature appropriate. Not diaphoretic. HEAD: Atraumatic. Normocephalic. EYES: Pupils equal and round and reactive. Extraocular motions intact. No scleral icterus. No injection or drainage. Fundi not examined. ENT: Hearing grossly normal. Nose without bleeding or purulent drainage. Edentulous NECK: Trachea midline. Supple, nontender. CARDIOVASCULAR: Regular rate and rhythm without murmurs, gallops, or rubs. No JVD. Peripheral pulses symmetric. RESPIRATORY/CHEST: Symmetric, unlabored respirations. Clear to auscultation. Breath sounds equal bilaterally. No wheezes, rales, or rhonchi. GASTROINTESTINAL: Abdomen soft, non-tender, nondistended. + scars from previous sx No hepato-splenomegaly, or palpable masses. No guarding. Bowel sounds present. GENITOURINARY: Without palpable bladder distension. Henderson catheter in place, no urine MUSCULOSKELETAL: Extremities without clubbing, cyanosis, or edema. No joint tenderness or effusion noted. No calf tenderness. No mottling or clubbing. R knee with old well healed scar and chronic apearin discoloration No swelling or drainage noted No erythema LYMPHATICS: No palpable cervical or supraclavicular adenopathy. NEUROLOGICAL: Unresponsive; sedated PSYCHIATRIC: unable to assess 2/2 mental status change Laboratory Laboratory Tests Test 11/30/16 11/30/16 11/30/16 12/01/16 17:10 19:25 19:59 05:15 Nasal Screen MRSA (PCR) POSITIVE Blood Gas Puncture Site LT RADIAL Blood Gas Patient Temperature 98.6 Blood Gas HCO3 24 Blood Gas Base Excess -2.2 Blood Gas Oxygen Saturation 96 Arterial Blood pH 7.23 Arterial Blood Partial 60 Pressure CO2 Arterial Blood Partial 132 Pressure O2 Arterial Blood Oxygen Content 14.2 Arterial Blood 0.9 Carboxyhemoglobin Arterial Blood Methemoglobin 1.5 Blood Gas Hemoglobin 10.4 Oxygen Delivery Device VENTILATOR Blood Gas Ventilator Setting PRVC/AC Blood Gas Inspired Oxygen 40 White Blood Count 12.8 23.3 Red Blood Count 3.38 2.98 Hemoglobin 9.6 8.5 Hematocrit 30.3 27.2 Mean Corpuscular Volume 89.8 91.1 Mean Corpuscular Hemoglobin 28.5 28.5 Mean Corpuscular Hemoglobin 31.8 31.2 Concent Red Cell Distribution Width 16.4 16.7 Platelet Count 227 198 Mean Platelet Volume 7.2 7.3 Neutrophils (%) (Auto) 95.4 96.9 Lymphocytes (%) (Auto) 2.1 1.4 Monocytes (%) (Auto) 2.2 1.5 Eosinophils (%) (Auto) 0.0 0.1 Basophils (%) (Auto) 0.3 0.1 Neutrophils # (Auto) 12.2 22.6 Lymphocytes # (Auto) 0.3 0.3 Monocytes # (Auto) 0.3 0.3 Eosinophils # (Auto) 0.0 0.0 Basophils # (Auto) 0.0 0.0 CBC Comment DIFF FINAL DIFF FINAL Differential Comment Activated Partial 51.3 61.3 Thromboplast Time Fibrinogen 491 417 Sodium Level 141 133 Potassium Level 3.7 3.4 Chloride Level 100 98 Carbon Dioxide Level 29.9 18.3 Anion Gap 11 17 Blood Urea Nitrogen 24 29 Creatinine 5.21 5.25 Estimat Glomerular Filtration 11 11 Rate Random Glucose 85 194 Lactic Acid Level 5.4 6.9 Calcium Level 6.8 6.7 Protein Corrected Calcium 7.5 7.9 Phosphorus Level 3.3 2.5 Magnesium Level 1.2 1.6 Total Bilirubin 2.7 Aspartate Amino Transf 102 (AST/SGOT) Alanine Aminotransferase 63 (ALT/SGPT) Alkaline Phosphatase 811 Ammonia 37 Total Creatine Kinase 125 Total Protein 5.7 4.8 Albumin 1.8 Thyroid Stimulating Hormone 3.710 3rd Gen Prothrombin Time 29.5 Prothromb Time International 2.6 Ratio Troponin I 0.35 Date/Time Procedure Status Source Growth 11/30/16 20:15 Aerobic Blood Culture - Preliminary Resulted Blood Peripheral Gram Negative K[place]on 11/30/16 20:15 Anaerobic Blood Culture - Preliminary Resulted Gram Negative K[place]on Result Diagram: 12/01/16 0515 12/01/16 0515 Imaging Last Impressions Chest X-Ray 11/30/16 1846 Signed Impressions: Service Date/Time: Wednesday, November 30, 2016 19:08 - CONCLUSION: 1. Basilar airspace disease right greater than left with small right effusion similar to November 28. Endotracheal tube, left central line and nasogastric tube in satisfactory position. Arian Coles MD Knee MRI 11/28/16 0000 Signed Impressions: Service Date/Time: Monday, November 28, 2016 14:07 - CONCLUSION: Severely limited exam because of susceptibility artifact from the metal prosthesis. I do not see an abscess above or below the prosthesis. Joint is not evaluated. Higinio Suero MD FACR Assessment and Plan Assessment and Plan E.coli sepsis, septic shock, MODS Acute VDRF Lactic acidosis Source likely intraabdomnal Doubt active R knee infx based on clinical pic or MRI report - cont zosyn - may dc vancomycin if no co-infx - CT A/P when feasible - KUB Discussed Condition With Moon Fu MD Dec 01, 2016 16:08
--- NOTE | 2016-12-01 16:43 | HHI.CCPN ---
Subjective Remarks/Hospital Course 71-year-old male. Date of admission 11/28/2016. Date of consultation . Past medical history includes end-stage renal disease on hemodialysis Monday was a Monday, hypertension, dyslipidemia, coronary disease status post stent, osteoarthritis with bilateral total knee replacement, chronic low back pain and gastric reflux disease. He also has a history of C. difficile and MRSA. He presents to [facility] with a few day history of lower extremity weakness. Specifically weakness in his right knee. He was started vancomycin with hemodialysis Patient was admitted on the hospitalist service. MRI of the knee revealed no acute findings. Was seen by Dr. Ac/orthopedics do not believe this is a septic joint. Follow-up with regular orthopedic physician. After hemodialysis today, patient received Zofran, and lisinopril. Patient was hypotensive and altered on the floor. Transferred to [facility] for further evaluation treatment. Patient was noted to be tachypneic in the 40s hypotensive. Decision made to intubate emergently and central line placed for vasopressor requirements. Objective Vital Signs Date Time Temp Pulse Resp B/P Pulse Ox O2 Delivery O2 Flow Rate FiO2 12/01/16 16:13 99 40 12/01/16 12:00 99.9 109 23 121/56 11/30/16 16:51 Nasal Cannula Intake and Output 11/30/16 11/30/16 12/01/16 08:00 16:00 00:00 Intake Total 720 ml 3175 ml Output Total 2000 ml 0 ml Balance 720 ml -2000 ml 3175 ml Result Diagram: 12/01/16 0515 12/01/16 0515 Other Results Laboratory Tests Test 11/30/16 19:25 Blood Gas Puncture Site LT RADIAL Blood Gas Patient Temperature 98.6 Blood Gas HCO3 24 mmol/L (22-26) Blood Gas Base Excess -2.2 mmol/L (-2-2) Blood Gas Oxygen Saturation 96 % (90-100) Arterial Blood pH 7.23 (7.380-7.420) Arterial Blood Partial 60 mmHg (38-42) Pressure CO2 Arterial Blood Partial 132 mmHg Pressure O2 (61-120) Arterial Blood Oxygen Content 14.2 Vol % (12.0-20.0) Arterial Blood 0.9 % (0-4) Carboxyhemoglobin Arterial Blood Methemoglobin 1.5 % (0-2) Blood Gas Hemoglobin 10.4 G/DL (12.0-16.0) Oxygen Delivery Device VENTILATOR Blood Gas Ventilator Setting PRVC/AC Blood Gas Inspired Oxygen 40 % Imaging Last Impressions Knee MRI 11/28/16 0000 Signed Impressions: Service Date/Time: Monday, November 28, 2016 14:07 - CONCLUSION: Severely limited exam because of susceptibility artifact from the metal prosthesis. I do not see an abscess above or below the prosthesis. Joint is not evaluated. Higinio Suero MD FACR Chest X-Ray 11/28/16 0000 Signed Impressions: Service Date/Time: Monday, November 28, 2016 13:39 - CONCLUSION: Cardiomegaly with minimal parenchymal changes right base. Higinio Suero MD FACR Objective Remarks GENERAL: 71-year-old male, critically ill currently orotracheally intubated SKIN: Warm and dry. No rash HEAD: Atraumatic. Normocephalic. EYES: Right pupil somewhat irregular. Slightly reactive bilaterally. No scleral icterus. No injection or drainage. ENT: No nasal bleeding or discharge. Mucous membranes pink and moist. NECK: Trachea midline. No JVD. Scoliotic neck. Tracheostomy scar noted. Left IJ clean dry and intact. Looks towards right CARDIOVASCULAR: Tachycardic, RR. S1, S2 no S4. No murmur RESPIRATORY: Ms. breath sounds. No wheezes rales or rhonchi.. Breath sounds equal bilaterally. GASTROINTESTINAL: Abdomen soft, non-tender, nondistended. Positive bowel sounds. MUSCULOSKELETAL: Extremities without peripheral edema. No obvious deformities. NEUROLOGICAL: Sedate on the ventilator on propofol. Prior to intubation moved all 4 extremities spontaneously and give thumbs up with right hand. Procedures None A/P Assessment and Plan Neuro/Psych: Depression/anxiety Acute encephalopathy likely toxic metabolic Chronic narcotic use Currently on propofol/fentanyl drips for sedation/analgesia while intubated RASS -2 goal Continue daily sedation vacation CT head are ordered - however too unstable for transportation Continue home medications of Abilify 15 mill grams twice a day, Zoloft 100 mg daily and BuSpar 15 no grams daily for depression/anxiety Patient is on Oramorph 120 mg by mouth twice a day for chronic pain management. CV: Hypotension History of hypertension History dyslipidemia Coronary artery disease status post stent 2 Patient is on lisinopril 20 mg twice a day and doxazosin 4 mg by mouth twice a day. Continue to Hold due to hypotension On normal saline Status post multiple boluses. A. Line placed, vigileo - SVV 7 Severe Lactic acidemia . Resp: Acute hypoxic and hypercapnic respiratory failure Hospital due to hypoperfusion secondary to sepsis? Medication induced? [facility] [id number]/ Ventilator bundle As needed bronchodilator therapy No Spontaneous breathing trials due to hemodynamic instability Follow-up post intubation ABG/chest x-ray GI: Gastroesophageal reflux disease Current patient's currently nothing by mouth OG tube replaced Protonix IV daily GI prophylaxis. Colace/as needed Senokot for bowel regimen. : Henderson if indicated for accurate I's and O's in a critically ill patient Endo: Sliding-scale insulin if indicated to maintain euglycemia Renal: End-stage renal disease on hemodialysis Monday/Monday/Monday Status post hemodialysis today. Nephrology following Heme: Normocytic anemia Monitor CBC/coags now ID: Monitor for infection. Evaluated this hospitalization for possible septic right knee joint Dr. Ac/ orthopedics. He does not believe this is a septic joint. MRI nonspecific Currently in vancomycin 1 g with hemodialysis Check blood cultures 2, sputum and urine output ID consult appreciated MSK: Chronic low back pain History of L4/L5 laminectomy Bilateral total knee replacements 2 PT evaluate and treat FEN: Hyperphosphatemia Replace electrolytes as clinically indicated On Renvela 800 mg 3 times a day. Access - Left IJ CVL day #1 Prophylaxis - GI - Protonix - DVT - SCD/heparin subcutaneous Critical Care: The total critical care time was 35 minutes. Time to perform other separately billable procedures was not included in the critical care time. Yo Oseguera MD Dec 01, 2016 16:43
[2016-12-01] MEDS: VASOPRESSIN INJ 40 UNITS in DEXTROSE 5% IN WATER 100ML INJ 98 ML IV SCH ×2 (20:01)
[2016-12-01] MEDS: PANTOPRAZOLE SODIUM 40 MG VIAL IV PUSH SCH (20:02)
[2016-12-01] MEDS: PRAVASTATIN SOD 40 MG TAB PO SCH (21:00)
[2016-12-01] MEDS ORDERED: ALBUMIN HUMAN 25% 25 GM/100 ML BAGP IV ONE (21:30)
[2016-12-01] MEDS ORDERED: SODIUM BICARBONATE 8.4% INJ 150 MEQ in WATER STERILE FOR INJ 850 ML IV SCH (22:00)
[2016-12-01] MEDS ORDERED: SODIUM CHLOR 0.9% 1000 ML INJ 1,000 ML IV ONE (22:00)
[2016-12-01] MEDS ORDERED: DILTIAZEM INJ 125 MG in SODIUM CHLORIDE 0.9% INJ 100 ML IV SCH (23:00)
[2016-12-01] MEDS ORDERED: EPINEPHrine (1:1000) INJ 2 MG in DEXTROSE 5% IN WATER INJ 248 ML IV SCH ×2 (23:30)
[2016-12-02] VITALS: BP_SYST 78; BP_SYST 90; BP_DIAS 32; BP_DIAS 42; PULSE 130; RESP 20; TEMP 107
[2016-12-02 01:18] VITALS: O2SAT 93
--- NOTE | 2016-12-02 01:42 | PD.PROCEDR ---
Procedure Note Procedure Patient asystole at 0101. Patient's on ventilator so asKED to pronounce. Pupils are fixed and dilated. No coronary reflux. No gag. Heart sounds are not auscultated. Unable to palpate bilateral carotids, radial and femoral pulses. Arterial line without wave flow. Time of 1:30. A.Colton Dai MD Dec 02, 2016 01:42
--- NOTE | 2016-12-25 06:27 | HHI.DS ---
Summary Note Date of : Dec 02, 2016 Time Of : 0130 Admission Date Nov 28, 2016 at 14:19 Admitting Diagnosis cellulitis R/O septic joint RLE Diagnosis at Time of : (1) Generalized weakness ICD Code: R53.1 (2) Cellulitis of right lower leg ICD Code: L03.115 (3) Chronic pain ICD Code: G89.29 (4) Hypertension ICD Code: I10 (5) GERD (gastroesophageal reflux disease) ICD Code: K21.9 (6) Depression ICD Code: F32.9 (7) ESRD (end stage renal disease) on dialysis ICD Code: N18.6 Procedures None Brief History The patient is a 71-year-old male who states that for the last month he has had loose stools. He states that over the past 2-3 days he started feeling weak in his legs. He states that today his legs just couldn't hold him up anymore. He denies falling. Denies lightheadedness, dizziness, loss of consciousness. Denies chest pain or dyspnea. Has had night sweats "for months". Denies fever or chills. States that his right lower leg has been red for quite some time, but has become more red in the last few days. He has some pain with flexion and extension of the right knee. Significant Findings Patient asystole at 0101. DNR. Intubation only at this time Patient's on ventilator so asKED to pronounce. Pupils are fixed and dilated. No coronary reflux. No gag. Heart sounds are not auscultated. Unable to palpate bilateral carotids, radial and femoral pulses. Arterial line without wave flow. Time of 1:30. A.m. Imaging Last Impressions Knee MRI 11/28/16 0000 Signed Impressions: Service Date/Time: Monday, November 28, 2016 14:07 - CONCLUSION: Severely limited exam because of susceptibility artifact from the metal prosthesis. I do not see an abscess above or below the prosthesis. Joint is not evaluated. Higinio Suero MD FACR Chest X-Ray 11/28/16 0000 Signed Impressions: Service Date/Time: Monday, November 28, 2016 13:39 - CONCLUSION: Cardiomegaly with minimal parenchymal changes right base. Higinio Suero MD FACR Hospital Course Neuro/Psych: Depression/anxiety Acute encephalopathy likely toxic metabolic Chronic narcotic use Currently on propofol/fentanyl drips for sedation/analgesia while intubated RASS -2 goal Continue daily sedation vacation CT head are ordered - however too unstable for transportation Continue home medications of Abilify 15 mill grams twice a day, Zoloft 100 mg daily and BuSpar 15 no grams daily for depression/anxiety Patient is on Oramorph 120 mg by mouth twice a day for chronic pain management. CV: Hypotension History of hypertension History dyslipidemia Coronary artery disease status post stent 2 Patient is on lisinopril 20 mg twice a day and doxazosin 4 mg by mouth twice a day. Continue to Hold due to hypotension On normal saline Status post multiple boluses. A. Line placed, vigileo - SVV 7 Severe Lactic acidemia . Resp: Acute hypoxic and hypercapnic respiratory failure Hospital due to hypoperfusion secondary to sepsis? Medication induced? [facility] / Ventilator bundle As needed bronchodilator therapy No Spontaneous breathing trials due to hemodynamic instability Follow-up post intubation ABG/chest x-ray GI: Gastroesophageal reflux disease Current patient's currently nothing by mouth OG tube replaced Protonix IV daily GI prophylaxis. Colace/as needed Senokot for bowel regimen. : Henderson if indicated for accurate I's and O's in a critically ill patient Endo: Sliding-scale insulin if indicated to maintain euglycemia Renal: End-stage renal disease on hemodialysis Monday/Monday/Monday Status post hemodialysis today. Nephrology following Heme: Normocytic anemia Monitor CBC/coags now ID: Monitor for infection. Evaluated this hospitalization for possible septic right knee joint Dr. Ac/ orthopedics. He does not believe this is a septic joint. MRI nonspecific Currently in vancomycin 1 g with hemodialysis Check blood cultures 2, sputum and urine output ID consult appreciated MSK: Chronic low back pain History of L4/L5 laminectomy Bilateral total knee replacements 2 PT evaluate and treat FEN: Hyperphosphatemia Replace electrolytes as clinically indicated On Renvela 800 mg 3 times a day. Access - Left IJ CVL day #1 Prophylaxis - GI - Protonix - DVT - SCD/heparin subcutaneous Colton Holliday MD Dec 25, 2016 06:27
== END 2016-12-02 01:30 | disposition expired | DRG 871 ==
LOC: NEPE 10:44 → NEDA 14:19 → N07B 19:58 → HIMN 11-30 17:00
PROVIDERS: ADMIT Internal Medicine Critical Care Medicine; ATTEND Internal Medicine Critical Care Medicine
PROC: 02HV33Z Insertion of Infusion Device into Superior Vena Cava, Percutaneous Approach (ICD-10-PCS; principal; 2016-11-30)
PROC: 0BH17EZ Insertion of Endotracheal Airway into Trachea, Via Natural or Artificial Opening (ICD-10-PCS; 2016-11-30)
PROC: 5A1945Z Respiratory Ventilation, 24-96 Consecutive Hours (ICD-10-PCS; 2016-11-30)
PROC: 4A133B1 Monitoring of Arterial Pressure, Peripheral, Percutaneous Approach (ICD-10-PCS; 2016-12-01)
PROC: 4A133J1 Monitoring of Arterial Pulse, Peripheral, Percutaneous Approach (ICD-10-PCS; 2016-12-01)
DX: A41.51 Sepsis due to Escherichia coli [E. coli] (principal); N18.6 End stage renal disease; R65.21 Severe sepsis with septic shock; L03.115 Cellulitis of right lower limb; G92 Toxic encephalopathy; I95.9 Hypotension, unspecified; E87.2 Acidosis; J96.02 Acute respiratory failure with hypercapnia; J96.01 Acute respiratory failure with hypoxia; I12.0 Hypertensive chronic kidney disease with stage 5 chronic kidney disease or end stage renal disease; T84.53XA Infection and inflammatory reaction due to internal right knee prosthesis, initial encounter; G62.9 Polyneuropathy, unspecified; D63.1 Anemia in chronic kidney disease; K21.9 Gastro-esophageal reflux disease without esophagitis; Z96.653 Presence of artificial knee joint, bilateral; E78.00 Pure hypercholesterolemia, unspecified; E78.5 Hyperlipidemia, unspecified; G89.29 Other chronic pain; M54.5 Low back pain; I25.10 Atherosclerotic heart disease of native coronary artery without angina pectoris; M17.0 Bilateral primary osteoarthritis of knee; F32.9 Major depressive disorder, single episode, unspecified; F41.9 Anxiety disorder, unspecified; Z99.2 Dependence on renal dialysis; Z87.891 Personal history of nicotine dependence; Z95.5 Presence of coronary angioplasty implant and graft; R19.7 Diarrhea, unspecified; R51 Headache; Z86.14 Personal history of Methicillin resistant Staphylococcus aureus infection; Z79.891 Long term (current) use of opiate analgesic; M19.90 Unspecified osteoarthritis, unspecified site; M25.519 Pain in unspecified shoulder
CPT/HCPCS: 31500; 36556; 36600; 71010; 73721; 76937; 80048; 80053; 82140; 82550; 82805; 82948; 83605; 83690; 83735; 84100; 84155; 84443; 84484; 85025; 85384; 85610; 85652; 85730; 86140; 87040; 87205; 87641; 90935; 93005; 93306; 94002; 94003; 96365; 96374; 96375; C9113; J0171; J1644; J1720; J2370; J2405; J2543; J3010; J3370; J3475; J7030; J7050; J7060; P9045; P9047; Q4081